=== PATIENT | male | born 1965 | race Caucasian/White ===

== ENCOUNTER 2017-07-03 00:04 | Emergency (ER) | payer OTHER ==
[2017-07-03 00:58] VITALS: BP 109/85; PULSE 88; TEMP 99.8; BMI 25.7
[2017-07-03] MEDS ORDERED: SODIUM CHLORIDE 1,000 ML IV STA (03:09)
--- NOTE | 2017-07-03 03:09 | PDOC ---
History of Present Illness - General Chief Complaint: Cold Symptoms Stated Complaint: FEVER Time Seen by Provider: 07/03/17 01:06 History Source: Patient Exam Limitations: No Limitations - History of Present Illness Initial Comments: 07/03/17 04:23 51-year-old male with a history of autism and hypertension presents to the emergency department complaining of subjective fever/chills but denies nausea/ vomiting, headache, dizziness, lightheadedness, facial pain, rhinorrhea, nasal congestion, earaches, sore throat, cough, neck pain/stiffness, back pains, chest pain, shortness of breath, abdominal pains, urinary symptoms. Patient denies any complaints. Patient lives in a usp, patient was sent to the emergency department for blood pressure of 117/72. Timing/Duration: reports: yesterday Past History - Past Medical History Allergies/Adverse Reactions: Allergies Allergy/AdvReac Type Severity Reaction Status Date / Time No Known Allergies Allergy Verified 07/03/17 00:56 Home Medications: Ambulatory Orders Amlodipine Besylate 5 mg PO DAILY 12/16/15 Cholecalciferol (Vitamin D3) [Vitamin D3] 2,000 unit PO DAILY 12/16/15 Clotrimazole [Lotrimin -] 1 applic TP BID 12/16/15 Cyanocobalamin [Vitamin B12 -] 1,000 mg PO DAILY 12/16/15 Losartan Potassium 100 mg PO DAILY 12/16/15 Metronidazole 0.75% Gel [Metrogel 0.75% Gel -] 1 applic TP BID 12/16/15 Multivitamins [Multivit ([facility] Formulary)] 1 tab PO DAILY 12/16/15 [place]-3 Fatty Acids [[place]-3] 1,000 mg PO BID 12/16/15 Polyethylene Glycol 3350 [Miralax 119 gm Btl -] 17 gm PO BID 12/16/15 Simvastatin [Zocor -] 20 mg PO HS 12/16/15 Clozapine [Clozaril] 50 mg PO DAILY 12/17/15 Clozapine [Clozaril] 100 mg PO HS 12/17/15 Levofloxacin [Levaquin] 750 mg PO DAILY #2 tablet 12/19/15 Diabetes: Yes (BORDERLINE) HTN: Yes Hypercholesterolemia: Yes Psychiatric Problems: Yes (SCHIZOAFFECTIVE DISORDER) - Suicide/Smoking/Psychosocial Hx Smoking History: Never smoked Have you smoked in the past 12 months: No Information on smoking cessation initiated: No Hx Alcohol Use: No Drug/Substance Use Hx: No Substance Use Type: None Hx Substance Use Treatment: No Review of Systems - Review of Systems Able to Perform ROS?: Yes Comments:: 07/03/17 04:23 CONSTITUTIONAL: +Subjective fever Absent: chills, diaphoresis, generalized weakness, malaise, loss of appetite HEENT: Absent: rhinorrhea, nasal congestion, throat pain, throat swelling, difficulty swallowing, mouth swelling, ear pain, eye pain, visual Changes CARDIOVASCULAR: Absent: chest pain, loss of consciousness, palpitations, irregular heart rate, peripheral edema RESPIRATORY: Absent: cough, shortness of breath, dyspnea with exertion, orthopnea, wheezing, stridor, hemoptysis GASTROINTESTINAL: Absent: abdominal pain, abdominal distension, nausea, vomiting, diarrhea, constipation, melena, hematochezia GENITOURINARY: Absent: dysuria, frequency, urgency, hesitancy, hematuria, flank pain, genital pain MUSCULOSKELETAL: Absent: myalgia, arthralgia, joint swelling SKIN: Absent: rash, itching, pallor HEMATOLOGIC/IMMUNOLOGIC: Absent: easy bleeding, easy bruising, lymphadenopathy, frequent infections ENDOCRINE: Absent: unexplained weight gain, unexplained weight loss, heat intolerance, cold intolerance NEUROLOGIC: Absent: headache, focal weakness or paresthesias, dizziness, unsteady gait, seizure, mental status changes, bladder or bowel incontinence PSYCHIATRIC: Absent: anxiety, depression, suicidal or homicidal ideation, hallucinations. 07/03/17 04:25 Is the patient limited German proficient: No *Physical Exam - Vital Signs Last Vital Signs Temp Pulse Resp BP Pulse Ox 99.8 F H 88 20 109/85 99 07/03/17 00:56 07/03/17 00:56 07/03/17 00:56 07/03/17 00:56 07/03/17 00:56 - Physical Exam Comments: 07/03/17 04:23 GENERAL: Well developed, well nourished. Awake and alert. No acute distress. HEENT: Normocephalic, atraumatic. PERRLA, EOMI. No conjunctival pallor. Sclera are non- icteric. Moist mucous membranes. Oropharynx is clear. NECK: Supple. Full ROM. No JVD. Carotid pulses 2+ and symmetric, without bruits. No thyromegaly. No lymphadenopathy. CARDIOVASCULAR: Regular rate and rhythm. No murmurs, rubs, or gallops. Distal pulses are 2+ and symmetric. PULMONARY: No evidence of respiratory distress. Lungs clear to auscultation bilaterally. No wheezing, rales or rhonchi. ABDOMINAL: Soft. Non-tender. Non-distended. No rebound or guarding. No organomegaly. Normoactive bowel sounds. MUSCULOSKELETAL Normal range of motion at all joints. No bony deformities or tenderness. No CVA tenderness. EXTREMITIES: No cyanosis. No clubbing. No edema. No calf tenderness. SKIN: Warm and dry. Normal capillary refill. No rashes. No jaundice. NEUROLOGICAL: Alert, awake, appropriate. Cranial nerves 2-12 intact. No deficits to light touch and temperature in face, upper extremities and lower extremities. No motor deficits in the in face, upper extremities and lower extremities. Normoreflexic in the upper and lower extremities. Normal speech. Toes are down- going bilaterally. Gait is normal without ataxia. PSYCHIATRIC: Cooperative. Good eye contact. Appropriate mood and affect. ED Treatment Course - LABORATORY CBC & Chemistry Diagram: 07/03/17 04:26 07/03/17 04:26 - RADIOLOGY Radiograph Interpretation: 07/03/17 04:25 CXR 2v NAD Medical Decision Making - Medical Decision Making 07/03/17 05:44 51-year-old male history of functioning autism presents to the emergency department complaining of general malaise and fever. Patient had 1 L of normal saline from EMS and was given 1 L of normal saline in the emergency department. Patient denies any abdominal discomfort. Patient denies any pain or discomfort. Patient states he just felt tired but after his 2 L of normal saline, patient states he feels great. Patient will be discharge with viral syndrome instructions. Patient's escort and the patient was informed to return back to the emergency department for any concerns. *DC/Admit/Observation/Transfer Diagnosis at time of Disposition: Viral syndrome - Discharge Dispostion Disposition: HOME Condition at time of disposition: Stable Admit: No - Referrals Referrals: Jayda Rankin [Primary Care Provider] - - Patient Instructions Printed Discharge Instructions: DI for Viral Syndrome Additional Instructions: Rest Increase fluids Follow up with your physician within 48 hours Return to the ER for severe/persistent/worsening symptoms - Post Discharge Activity
[2017-07-03 04:38] LABS: BASO % 0.2 % (0-2.0); EOS % 0.9 % (0-4.5); HEMATOCRIT 36.7 % (35.4-49); HEMOGLOBIN 12.4 GM/dL (11.7-16.9); LYMPH % 12.6 % (8-40); MCH 31.1 pg (25.7-33.7); MCHC 33.8 g/dl (32.0-35.9); MEAN PLT VOLUME 9.4 fl (7.5-11.1); NEUT % 73.3 % (42.8-82.8); PLATELET COUNT 187 K/MM3 (134-434); RBC 3.99 M/mm3 (4.00-5.60); RDW 13.4 % (11.9-15.9); WHITE BLOOD COUNT 13.6 K/mm3 (4.0-10.0)
[2017-07-03 05:02] LABS: ALBUMIN 2.9 g/dl (3.4-5.0); ANION GAP 7 (8-16); BLOOD UREA NITROGEN 19 mg/dL (7-18); CALCIUM 8.4 mg/dL (8.5-10.1); CHLORIDE 107 mmol/L (98-107); CO2 26 mmol/L (21-32); CREATININE 0.9 mg/dL (0.7-1.3); GLUCOSE,RANDOM 85 mg/dL (74-106); SGOT/AST 13 U/L (15-37); SGPT/ALT 16 U/L (12-78); SODIUM 140 mmol/L (136-145)
[2017-07-03 05:04] LABS: ALK PHOS 69 U/L (45-117); BILIRUBIN,TOTAL 0.5 mg/dL (0.2-1.0); TOT PROT 6.3 g/dl (6.4-8.2)
== END 2017-07-03 05:54 | disposition home or self-care (01) ==
LOC: JER 00:04
PROC: 3E0337Z Introduction of Electrolytic and Water Balance Substance into Peripheral Vein, Percutaneous Approach (ICD-10-PCS; principal; 2017-07-03)
DX: I10 Essential (primary) hypertension (principal); E78.00 Pure hypercholesterolemia, unspecified; F25.9 Schizoaffective disorder, unspecified; E11.9 Type 2 diabetes mellitus without complications
CPT/HCPCS: 36415; 71045-TC; 80053; 85025; 87070; 87430; 87804; 96360; 99282-25

== ENCOUNTER 2017-12-05 11:28 | Emergency (ER) | payer OTHER ==
[2017-12-05 11:43] VITALS: BMI 25.0
[2017-12-05] MEDS ORDERED: SODIUM CHLORIDE 1,000 ML IV STA (12:04)
[2017-12-05 12:27] LABS: BASO % 0.2 % (0-2.0); EOS % 3.6 % (0-4.5); HEMATOCRIT 40.7 % (35.4-49); LYMPH % 16.9 % (8-40); MCH 31.6 pg (25.7-33.7); MCHC 34.4 g/dl (32.0-35.9); MONO % 12.2 % (3.8-10.2); NEUT % 67.1 % (42.8-82.8); PLATELET COUNT 199 K/MM3 (134-434); RBC 4.43 M/mm3 (4.00-5.60); RDW 13.6 % (11.9-15.9); WHITE BLOOD COUNT 6.7 K/mm3 (4.0-10.0)
[2017-12-05 12:39] LABS: INR 1.02 (0.82-1.09); PROTHROMBIN TIME (PATIENT) 11.5 SEC (9.7-13.0)
[2017-12-05 12:49] LABS: ALBUMIN 3.7 g/dl (3.4-5.0); ALK PHOS 71 U/L (45-117); ANION GAP 5 (8-16); BILIRUBIN,TOTAL 0.3 mg/dL (0.2-1.0); BLOOD UREA NITROGEN 11 mg/dL (7-18); CHLORIDE 110 mmol/L (98-107); CO2 27 mmol/L (21-32); CREATININE 0.9 mg/dL (0.7-1.3); GLUCOSE,RANDOM 77 mg/dL (74-106); SGPT/ALT 25 U/L (12-78); SODIUM 142 mmol/L (136-145); TOT PROT 6.8 g/dl (6.4-8.2)
[2017-12-05 12:50] LABS: POTASSIUM 4.9 mmol/L (3.5-5.1); SGOT/AST 27 U/L (15-37)
--- NOTE | 2017-12-05 13:10 | PDOC ---
History of Present Illness - General Chief Complaint: Blood Pressure Problem Stated Complaint: HYPERTENSION Time Seen by Provider: 12/05/17 11:42 - History of Present Illness Initial Comments: 12/05/17 13:07 "Patient is a 52 year old male with a PMHx of HTN, hyperlipidemia, and schizoaffective disorder who was BIBA from his intermediate at [facility] for hypotension. Patients blood pressure was taken at intermediate and found to be 80/60. Per intermediate nurse, his normal blood pressure is 100 systolic. Pt was given his home dose of amlodipine and losartan this morning. Pt has no complaints. He states that he feels well. He denies any lightheadedness, dizziness, chest pain, shortness of breath, vomit , diarrhea, abdominal pain, fever, or chills. Upon arrival to ED, pt's BP was 103/60. Past History - Past Medical History Allergies/Adverse Reactions: Allergies Allergy/AdvReac Type Severity Reaction Status Date / Time No Known Allergies Allergy Verified 07/03/17 00:56 Home Medications: Ambulatory Orders Amlodipine Besylate 5 mg PO DAILY 12/16/15 Cholecalciferol (Vitamin D3) [Vitamin D3] 2,000 unit PO DAILY 12/16/15 Clotrimazole [Lotrimin -] 1 applic TP BID 12/16/15 Cyanocobalamin [Vitamin B12 -] 1,000 mg PO DAILY 12/16/15 Losartan Potassium 100 mg PO DAILY 12/16/15 Multivitamins [Multivit ([facility] Formulary)] 1 tab PO DAILY 12/16/15 [place]-3 Fatty Acids [[place]-3] 1,000 mg PO BID 12/16/15 Polyethylene Glycol 3350 [Miralax 119 gm Btl -] 17 gm PO BID 12/16/15 Simvastatin [Zocor -] 20 mg PO HS 12/16/15 metroNIDAZOLE 0.75% GEL [Metrogel 0.75% Gel -] 1 applic TP BID 12/16/15 Clozapine [Clozaril] 50 mg PO DAILY 12/17/15 Clozapine [Clozaril] 100 mg PO HS 12/17/15 Levofloxacin [Levaquin] 750 mg PO DAILY #2 tablet 12/19/15 COPD: No Diabetes: Yes (BORDERLINE) HTN: Yes Hypercholesterolemia: Yes Psychiatric Problems: Yes (SCHIZOAFFECTIVE DISORDER) - Immunization History Immunization Up to Date: Yes - Suicide/Smoking/Psychosocial Hx Smoking History: Never smoked Have you smoked in the past 12 months: No Information on smoking cessation initiated: No Hx Alcohol Use: No Drug/Substance Use Hx: No Substance Use Type: None Hx Substance Use Treatment: No Review of Systems - Review of Systems Comments:: 12/05/17 13:09 """GENERAL/CONSTITUTIONAL: No fever or chills. No weakness. HEAD, EYES, EARS, NOSE AND THROAT: No change in vision. No ear pain or discharge. No sore throat. CARDIOVASCULAR: No chest pain or shortness of breath. RESPIRATORY: No cough, wheezing, or hemoptysis. GASTROINTESTINAL: No nausea, vomiting, diarrhea or constipation. GENITOURINARY: No dysuria, frequency, or change in urination. MUSCULOSKELETAL: No joint or muscle swelling or pain. No neck or back pain. SKIN: No rash NEUROLOGIC: No headache, vertigo, loss of consciousness, or change in strength/ sensation. ENDOCRINE: No increased thirst. No abnormal weight change. HEMATOLOGIC/LYMPHATIC: No anemia, easy bleeding, or history of blood clots. ALLERGIC/IMMUNOLOGIC: No hives or skin allergy. """ *Physical Exam - Vital Signs Last Vital Signs Temp Pulse Resp BP Pulse Ox 98.2 F 77 20 103/60 96 12/05/17 11:40 12/05/17 11:40 12/05/17 11:40 12/05/17 11:40 12/05/17 11:40 - Physical Exam Comments: 12/05/17 13:09 """GENERAL: Awake, alert, and fully oriented, in no acute distress. HEAD: No signs of trauma EYES: PERRLA, EOMI, sclera anicteric, conjunctiva clear ENT: Auricles normal inspection, hearing grossly normal, nares patent, oropharynx clear without exudates. Moist mucosa NECK: Nontender, no stepoffs, Normal ROM, supple, no lymphadenopathy, JVD, or masses LUNGS: Breath sounds equal, clear to auscultation bilaterally. No wheezes, and no crackles HEART: Regular rate and rhythm, normal S1 and S2, no murmurs, rubs or gallops ABDOMEN: Soft, nontender, normoactive bowel sounds. No guarding, no rebound. No masses EXTREMITIES: Normal range of motion, no edema. No clubbing or cyanosis. No cords, erythema, or tenderness NEUROLOGICAL: Cranial nerves II through XII intact. 5/5 strength and sensation in all extremities, Normal speech, normal gait, normal cerebellar function SKIN: Warm, Dry, normal turgor, no rashes or lesions noted. """ Heart Score/ECG Review - ECG Impressions Comment:: 12/05/17 13:09 NSR, no RENEE/STDs, no TWIs, axis wnl, intervals wnl, rate 73 ED Treatment Course - LABORATORY CBC & Chemistry Diagram: 12/05/17 12:00 12/05/17 12:00 - ADDITIONAL ORDERS Additional order review: Laboratory Results 12/05/17 12:00 Sodium 142 Potassium 4.9 D Chloride 110 H Carbon Dioxide 27 Anion Gap 5 L BUN 11 Creatinine 0.9 Creat Clearance w eGFR > 60 Random Glucose 77 Calcium 9.0 Total Bilirubin 0.3 AST 27 D ALT 25 D Alkaline Phosphatase 71 Total Protein 6.8 Albumin 3.7 12/05/17 12:00 RBC 4.43 MCV 92.0 MCHC 34.4 RDW 13.6 MPV 10.0 Neutrophils % 67.1 Lymphocytes % 16.9 D Monocytes % 12.2 H Eosinophils % 3.6 D Basophils % 0.2 - Medications Given in the ED: ED Medications Discontinued Medications Generic Name Dose Route Start Last Admin Trade Name Bubbaq PRN Reason Stop Dose Admin Sodium Chloride 1,000 mls @ 1,000 mls/hr 12/05/17 12:04 12/05/17 12:05 Normal Saline - IV 12/05/17 13:03 1,000 mls/hr ASDIR STA Administration Medical Decision Making - Medical Decision Making 12/05/17 13:09 52 M with hypotension at intermediate, now resolved. Pt with no symptoms whatsoever. I suspect false BP reading vs transient hypotension 2/2 pt's antihypertensives. Pt currently HD stable with no complaints. - Labs 12/05/17 13:26 Labs wnl Pt reassessed - continues to have no complaints. Pt is well appearing, with normal vitals. Clinically stable for DC at this time. I discussed the physical exam findings, ancillary test results and final diagnoses with the patient. I answered all of the patient's questions. The patient was satisfied with the care received and felt comfortable with the discharge plan and treatment plan. The patient agrees to follow up with the primary care physician within 24-72 hours. *DC/Admit/Observation/Transfer Diagnosis at time of Disposition: Blood pressure abnormally low - Discharge Dispostion Disposition: HOME - Referrals Referrals: ON STAFF,NOT [Primary Care Provider] - - Patient Instructions Printed Discharge Instructions: DI for Hypotension Additional Instructions: Continue taking your medications as prescribed, and check your blood pressure regular. Follow up with your primary doctor within 1 week. You may need to have your medications adjusted if your blood pressure continues to run low. If you experience lightheadedness, dizziness, chest pain, shortness of breath, or any other concerning symptoms, return to the ER immediately. - Post Discharge Activity - Attestations Physician Attestion: 12/05/17 13:29 I, Dr. James Goodson MD, attest that this document has been prepared under my direction and personally reviewed by me in its entirety. I further attest, that it accurately reflects all work, treatment, procedures and medical decision -making performed by me.
[2017-12-05 13:49] VITALS: BP 135/80; PULSE 87; TEMP 98.3
--- NOTE | 2017-12-06 17:31 | EKG ---
Test Reason : Blood Pressure : / mmHG Vent. Rate : 073 BPM Atrial Rate : 073 BPM P-R Int : 182 ms QRS Dur : 092 ms QT Int : 390 ms P-R-T Axes : 051 -06 041 degrees QTc Int : 429 ms NORMAL SINUS RHYTHM NORMAL ECG WHEN COMPARED WITH ECG OF 16-DEC-2015 16:49, NO SIGNIFICANT CHANGE WAS FOUND Confirmed by CATY AZAR MD ([id number]) on 12/06/2017 5:31:05 PM Referred By: Confirmed By:CATY AZAR MD
== END 2017-12-05 13:44 | disposition home or self-care (01) ==
LOC: JER 11:28
PROC: 3E0337Z Introduction of Electrolytic and Water Balance Substance into Peripheral Vein, Percutaneous Approach (ICD-10-PCS; principal; 2017-12-05)
DX: I95.9 Hypotension, unspecified (principal); E78.5 Hyperlipidemia, unspecified; E78.00 Pure hypercholesterolemia, unspecified; E11.9 Type 2 diabetes mellitus without complications; I10 Essential (primary) hypertension; F25.9 Schizoaffective disorder, unspecified
CPT/HCPCS: 36415; 80053; 82550; 84484; 85025; 85610; 93005; 93010; 96360; 99285-25; J7030

== ENCOUNTER 2017-12-27 14:34 | Inpatient (IN) | payer OTHER ==
--- NOTE | 2017-12-27 14:40 | PDOC ---
History of Present Illness - General Chief Complaint: Blood Pressure Problem Stated Complaint: LOW BLOOD PRESSURE Time Seen by Provider: 12/27/17 14:39 History Source: Patient Exam Limitations: No Limitations - History of Present Illness Initial Comments: 12/27/17 15:13 Mr. Louis is a 52 yo M who has a past medical history of HTN, schizoaffective disorder, and borderline DM presents today with lightheadedness for 2 hrs with onset at 1pm. His last cardiology appointment was December [address] Bermudez which resulted in a decrease of his cozar to 50 mg from 100 mg. He currently lives in a residential and was on a day trip when the assistants noticed he was "shaky" and per the patient, began having lightheadedness while laying down. His BP measured was 108/58 with a pulse of 100. He denies loss of consciousness, head trauma, weakness, palpitations, and SOB. He endorses having a non productive cough over the last 3 days. Pmhx: Schizoaffective disorder, HTN, borderline DM, Shx: Hernia repair . Medications: Norvasc 5 mg, cozar 50 mg, clozapine, and aspirin 81 mg. Allergies: None Social history: Denies smoking, alcohol, and substance abuse PCP: Jayda Rankin [phone] 12/27/17 15:18 Past History - Past Medical History Allergies/Adverse Reactions: Allergies Allergy/AdvReac Type Severity Reaction Status Date / Time No Known Allergies Allergy Verified 07/03/17 00:56 Home Medications: Ambulatory Orders Amlodipine Besylate 5 mg PO DAILY 12/16/15 Cholecalciferol (Vitamin D3) [Vitamin D3] 2,000 unit PO DAILY 12/16/15 Cyanocobalamin [Vitamin B12 -] 1,000 mg PO DAILY 12/16/15 Losartan Potassium 50 mg PO DAILY 12/16/15 Multivitamins [Multivit ([facility] Formulary)] 1 tab PO DAILY 12/16/15 Polyethylene Glycol 3350 [Miralax 119 gm Btl -] 17 gm PO BID PRN 12/16/15 Clozapine [Clozaril] 50 mg PO DAILY 12/17/15 Clozapine [Clozaril] 100 mg PO HS 12/17/15 COPD: No Diabetes: Yes (BORDERLINE) HTN: Yes Hypercholesterolemia: Yes Psychiatric Problems: Yes (SCHIZOAFFECTIVE DISORDER) - Immunization History Immunization Up to Date: Yes - Suicide/Smoking/Psychosocial Hx Smoking History: Never smoked Have you smoked in the past 12 months: No Hx Alcohol Use: No Drug/Substance Use Hx: No Substance Use Type: None Hx Substance Use Treatment: No Review of Systems - Review of Systems Able to Perform ROS?: Yes Constitutional: No: Diaphoresis, Fever, Night Sweats HEENTM: No: Blurred Vision, Recent change in vision, Ear Pain, Nose Pain, Throat Pain Respiratory: No: Cough, Shortness of Breath Cardiac (ROS): No: Chest Pain, Palpitations ABD/GI: Yes: Poor Fluid Intake (per patient it is adequate. Per health aide it is underwhelming). No: Constipated, Diarrhea, Nausea, Rectal Bleeding, Vomiting , Tarry Stools : No: Dysuria, Hematuria Musculoskeletal: No: Back Pain Integumentary: No: Rash Neurological: No: Headache Endocrine: No: Unexplained Weight Gain *Physical Exam - Physical Exam General Appearance: Yes: Nourished, Appropriately Dressed HEENT: positive: Normal Voice Neck: negative: Lymphadenopathy (R), Lymphadenopathy (L) Respiratory/Chest: positive: Other (Lungs clear left side. Mild tightness of airflow in the right lung at mid to base.) Cardiovascular: positive: Regular Rhythm, Regular Rate, S1, S2, Systolic Murmur (grade 1) Gastrointestinal/Abdominal: positive: Normal Bowel Sounds. negative: Tender Lymphatic: negative: Adenopathy Musculoskeletal: positive: Normal Inspection Extremity: positive: Normal Inspection Integumentary: positive: Normal Color, Dry, Warm Neurologic: positive: Alert Heart Score/ECG Review - ECG Intrepretation Rhythm: Regular Rhythm - [place]: Normal - P and RI Prominent R with upright T in V1 (true posterior AL): No - ST and T Non Specific ST-T Wave changes: No - ECG Impressions Normal ECG: Yes ED Treatment Course - LABORATORY CBC & Chemistry Diagram: 12/27/17 16:42 12/27/17 16:42 Medical Decision Making - Medical Decision Making 12/27/17 16:33 Mr. Louis is a 52 yo M with a hx of schizoaffective disorder, HTN, and a recent ED visit for hypotension presents to the ED with hypotension with earlier concurrent lightheadedness. Initial vitals: Initial Vital Signs Temp Pulse Resp BP Pulse Ox 98.4 F 99 H 16 104/69 95 12/27/17 14:36 12/27/17 14:36 12/27/17 14:36 12/27/17 14:36 12/27/17 14:36 Workup: CBC, CMP, troponin, UA, EKG, and chest xray. 1000 mL bolus of NS given. 12/27/17 17:00 *DC/Admit/Observation/Transfer Diagnosis at time of Disposition: Pneumonia Qualifiers: Pneumonia type: due to unspecified organism Laterality: right Lung location: upper lobe of lung Qualified Code(s): J18.1 - Lobar pneumonia, unspecified organism - Discharge Dispostion Decision to Admit order: Yes - Referrals Referrals: Jayda Rankin [Primary Care Provider] - - Patient Instructions - Post Discharge Activity
[2017-12-27 15:06] VITALS: BMI 24.7
[2017-12-27] MEDS ORDERED: SODIUM CHLORIDE 1,000 ML IV STA (15:44)
[2017-12-27 16:40] LABS: URINE APPEARANCE Clear; URINE BILIRUBIN Negative (NEGATIVE); URINE COLOR Yellow; URINE GLUCOSE (UA) Negative (NEGATIVE); URINE KETONE Negative (NEGATIVE); URINE LEUK ESTERASE Negative (NEGATIVE); URINE NITRITE Negative (NEGATIVE); URINE PROTEIN 2+ (NEGATIVE); URINE UROBILINOGEN 0.2 (0.2-1.0)
[2017-12-27 17:02] LABS: HEMATOCRIT 43.6 % (35.4-49); HEMOGLOBIN 14.9 GM/dl (11.7-16.9); MCH 31.8 pg (25.7-33.7); MCHC 34.2 g/dl (32.0-35.9); MEAN PLT VOLUME 10.1 fl (7.5-11.1); PLATELET COUNT 193 K/MM3 (134-434); RBC 4.69 M/mm3 (4.00-5.60); WHITE BLOOD COUNT 29.4 K/mm3 (4.0-10.8)
[2017-12-27 17:31] LABS: ALBUMIN 3.6 g/dl (3.5-5.0); ALK PHOS 58 U/L (32-92); ANION GAP 9 (8-16); BILIRUBIN,TOTAL 0.8 mg/dl (0.2-1.0); BLOOD UREA NITROGEN 15 mg/dl (7-18); CALCIUM 9.5 mg/dl (8.4-10.2); CHLORIDE 102 mmol/L (98-107); CO2 22 mmol/L (22-28); CREATININE 0.8 mg/dl (0.6-1.3); GLUCOSE,RANDOM 125 mg/dl (74-106); POTASSIUM 3.9 mmol/L (3.5-5.1); SGOT/AST 24 U/L (10-42); SGPT/ALT 14 U/L (10-40); SODIUM 133 mmol/L (136-145); TOT PROT 6.5 g/dl (6.4-8.3)
[2017-12-27] MEDS ORDERED: VANCOMYCIN 1 GRAM (PRE-DOCKED) 1,000 MG/250 ML BAG IVPB ONE (17:33)
--- NOTE | 2017-12-27 17:34 | PDOC ---
Attending Attestation - Resident Resident Name: ZekeGarth - ED Attending Attestation I have performed the following: I have examined & evaluated the patient, The case was reviewed & discussed with the resident, I agree w/resident's findings & plan, Exceptions are as noted - HPI HPI: 12/27/17 17:28 52 yo male with h/o htn hld schizoaffective here from long-term for low blood pressure. normal blood pressure runs around 100 sbp. was seen for same in november. today c/o feeling lightheaded. has had dry nonproductive cough. no cp no f/c no urinary complaints. decreased po intake. no f or chills. was recently decreaesed bp meds from amlodipine 5 and loSARTAN 100, DECREASED TO 50 mg NO N/ V NO DIARRHEA. take clozaril also 12/27/17 17:35 - Physicial Exam PE: 12/27/17 17:30 awake alert lungs with faint crackles right side. no wheezing. normal effort. heart rrr no mrg. abd soft nt nd. skin warm and dryl. alert oriented x 3. affect flat,but calm cooperative. - Medical Decision Making 12/27/17 17:32 52 yo male h/;o schizoaffective htn hld from long-term with lightheaded. borderline low bp. differential decreased po intake, pna or other infection such as uti, anemia or other electyrolyte abnormality labs noted for wbc 29, cxr with right upper lobe pneumonia, will treat for health care associated because in long-term. will admit for med/ surg.
[2017-12-27] MEDS ORDERED: PIPERACILLIN/TAZOB 3.375 GM 3.375 GM in DEXTROSE 5%-WATER - 50 ML IVPB ONE (17:35)
[2017-12-27 17:59] LABS: EPI CELLS RARE /HPF; URINE BACTERIA RARE /hpf (NEGATIVE); URINE RBC 0-3 /hpf (0-3); URINE WBC 0-3 (0-2)
[2017-12-27] MEDS ORDERED: SODIUM CHLORIDE 0.9% 1000 ML INFUS.BAG IV ONE (19:18)
[2017-12-27 19:39] LABS: OVALOCYTE 1+; PLATELET ESTIMATE ADEQUATE
[2017-12-27] MEDS ORDERED: VANCOMYCIN 1,000 MG VIAL (RESTRICTED TO ID ONLY) ONE (21:58)
[2017-12-27] MEDS ORDERED: PIPERACILLIN/TAZOBACTAM 3.375 GM VIAL IVPB ONE (21:59)
[2017-12-27] MEDS ORDERED: cloZAPine 100 MG TABLET PO ONE (23:45)
[2017-12-27] MEDS ORDERED: ACETAMINOPHEN 325 MG TABLET (FP) PO PRN (23:50)
--- NOTE | 2017-12-27 23:50 | HP ---
Admitting History and Physical - Primary Care Physician PCP: Rolf Lara - Admission History of Present Illness: Mr. Louis is a 52 yo M who has a past medical history of HTN, schizoaffective disorder, and borderline DM presents today with lightheadedness for 2 hrs with onset at 1pm. His last cardiology appointment was December [address] Bermudez which resulted in a decrease of his cozar to 50 mg from 100 mg. He currently lives in a detention and was on a day trip when the assistants noticed he was "shaky" and per the patient, began having lightheadedness while laying down. His BP measured was 108/58 with a pulse of 100. He denies loss of consciousness, head trauma, weakness, palpitations, and SOB. He endorses having a non productive cough over the last 3 days. Pmhx: Schizoaffective disorder, HTN, borderline DM, - Smoking History Smoking history: Never smoked Have you smoked in the past 12 months: No - Alcohol/Substance Use Hx Alcohol Use: No Home Medications - Allergies Allergies/Adverse Reactions: Allergies Allergy/AdvReac Type Severity Reaction Status Date / Time No Known Allergies Allergy Verified 07/03/17 00:56 - Home Medications Home Medications: Ambulatory Orders Amlodipine Besylate 5 mg PO DAILY 12/16/15 Cholecalciferol (Vitamin D3) [Vitamin D3] 2,000 unit PO DAILY 12/16/15 Cyanocobalamin [Vitamin B12 -] 1,000 mg PO DAILY 12/16/15 Losartan Potassium 50 mg PO DAILY 12/16/15 Multivitamins [Multivit ([facility] Formul[facility])] 1 tab PO DAILY 12/16/15 Polyethylene Glycol 3350 [Miralax 119 gm Btl -] 17 gm PO BID PRN 12/16/15 Clozapine [Clozaril] 50 mg PO DAILY 12/17/15 Clozapine [Clozaril] 100 mg PO HS 12/17/15 Physical Examination Vital Signs: Vital Signs Temperature 98.4 F 12/27/17 14:36 Pulse Rate 99 H 12/27/17 14:36 Respiratory Rate 16 12/27/17 14:36 Blood Pressure 104/69 12/27/17 14:36 O2 Sat by Pulse Oximetry (%) 95 12/27/17 14:36 Constitutional: Yes: No Distress HENT: Yes: Atraumatic Neck: Yes: Supple Cardiovascular: Yes: Regular Rate and Rhythm Respiratory: Yes: Rhonchi Gastrointestinal: Yes: Normal Bowel Sounds Extremities: Yes: WNL Neurological: Yes: Alert, Oriented Labs: CBC, BMP 12/27/17 16:42 12/27/17 16:42 Problem List - Problems (1) Pneumonia Assessment/Plan: iv abx fu labs id on board stable Code(s): J18.9 - PNEUMONIA, UNSPECIFIED ORGANISM Qualifiers: Pneumonia type: due to unspecified organism Laterality: right Lung location: upper lobe of lung Qualified Code(s): J18.1 - Lobar pneumonia, unspecified organism (2) Blood pressure abnormally low Assessment/Plan: monitor Code(s): R03.1 - NONSPECIFIC LOW BLOOD-PRESSURE READING Assessment/Plan Laboratory Tests 12/27/17 12/27/17 12/27/17 15:40 16:42 16:42 WBC 29.4 H RBC 4.69 Hgb 14.9 Hct 43.6 MCV 93.0 MCH 31.8 MCHC 34.2 RDW 13.0 Plt Count 193 MPV 10.1 Absolute Neuts (auto) 25.8 Neutrophils % No Result Required. Neutrophils % (Manual) 81.0 Band Neutrophils % 4.0 Lymphocytes % No Result Required. Lymphocytes % (Manual) 2.0 L Monocytes % (Manual) 7 Platelet Estimate Adequate Ovalocytes 1+ Sodium 133 L Potassium 3.9 Chloride 102 Carbon Dioxide 22 Anion Gap 9 BUN 15 Creatinine 0.8 Creat Clearance w eGFR > 60 Random Glucose 125 H Lactic Acid Calcium 9.5 Total Bilirubin 0.8 AST 24 ALT 14 Alkaline Phosphatase 58 Troponin I Total Protein 6.5 Albumin 3.6 Urine Color Yellow Urine Appearance Clear Urine pH 7.0 Ur Specific Anita 1.020 Urine Protein 2+ H Urine Glucose (UA) Negative Urine Ketones Negative Urine Blood Negative Urine Nitrite Negative Urine Bilirubin Negative Urine Urobilinogen 0.2 Ur Leukocyte Esterase Negative Urine RBC 0-3 Urine WBC 0-3 Ur Epithelial Cells Rare Urine Bacteria Rare 12/27/17 12/27/17 16:42 20:15 WBC RBC Hgb Hct MCV MCH MCHC RDW Plt Count MPV Absolute Neuts (auto) Neutrophils % Neutrophils % (Manual) Band Neutrophils % Lymphocytes % Lymphocytes % (Manual) Monocytes % (Manual) Platelet Estimate Ovalocytes Sodium Potassium Chloride Carbon Dioxide Anion Gap BUN Creatinine Creat Clearance w eGFR Random Glucose Lactic Acid 1.0 Calcium Total Bilirubin AST ALT Alkaline Phosphatase Troponin I < 0.03 Total Protein Albumin Urine Color Urine Appearance Urine pH Ur Specific Anita Urine Protein Urine Glucose (UA) Urine Ketones Urine Blood Urine Nitrite Urine Bilirubin Urine Urobilinogen Ur Leukocyte Esterase Urine RBC Urine WBC Ur Epithelial Cells Urine Bacteria Active Medications Generic Name Dose Route Start Last Admin Trade Name Royce PRN Reason Stop Dose Admin Acetaminophen 650 mg 12/27/17 23:50 Tylenol - PO Q6H PRN FEVER Amlodipine Besylate 5 mg 12/28/17 10:00 12/28/17 09:48 Norvasc - PO 5 mg DAILY [facility] Administration Cholecalciferol 1,000 unit 12/28/17 10:00 12/28/17 09:48 Vitamin D3 - PO 1,000 unit DAILY [facility] Administration Clozapine 100 mg 12/28/17 22:00 Clozaril - PO HS [facility] Clozapine 50 mg 12/28/17 10:00 12/28/17 10:38 Clozaril - PO 50 mg DAILY [facility] Administration Cyanocobalamin 1,000 mcg 12/28/17 10:00 12/28/17 09:48 Vitamin B12 - PO 1,000 mcg DAILY [facility] Administration Heparin Sodium (Porcine) 5,000 unit 12/28/17 10:00 12/28/17 09:48 Heparin - SQ 5,000 unit BID [facility] Administration Piperacillin Sod/Tazobactam Sod 3.375 gm in 50 mls @ 100 mls/hr 12/28/17 10: 00 12/28/17 10:37 Zosyn 3.375gm Ivpb (Pre-Docked) IVPB 100 mls/hr Q8H-IV [facility] Administration Protocol Losartan Potassium 50 mg 12/28/17 10:00 12/28/17 09:48 Cozaar - PO 50 mg DAILY [facility] Administration Multivitamins/Minerals/Vitamin C 1 tab 12/28/17 10:00 12/28/17 09:48 Tab-A-Vit - PO 1 tab DAILY [facility] Administration Polyethylene Glycol 17 gm 12/28/17 10:00 12/28/17 09:49 Miralax (For Daily Use) - PO 17 gm BID [facility] Administration
[2017-12-28 08:52] LABS: ALBUMIN 3.1 g/dl (3.5-5.0); ALK PHOS 56 U/L (32-92); ANION GAP 8 (8-16); BILIRUBIN,TOTAL 1.2 mg/dl (0.2-1.0); BLOOD UREA NITROGEN 14 mg/dl (7-18); CALCIUM 9.1 mg/dl (8.4-10.2); CHLORIDE 106 mmol/L (98-107); CO2 21 mmol/L (22-28); CREATININE 0.8 mg/dl (0.6-1.3); GLUCOSE,RANDOM 104 mg/dl (74-106); POTASSIUM 3.8 mmol/L (3.5-5.1); SGOT/AST 20 U/L (10-42); SGPT/ALT 13 U/L (10-40); SODIUM 135 mmol/L (136-145); TOT PROT 6.2 g/dl (6.4-8.3)
[2017-12-28 09:20] LABS: RBC 4.01 M/mm3 (4.00-5.60)
[2017-12-28 09:36] LABS: HEMOGLOBIN 12.8 GM/dl (11.7-16.9); MCH 31.9 pg (25.7-33.7); MCHC 34.6 g/dl (32.0-35.9); MEAN CELL VOLUME 92.2 fl (80-96); MEAN PLT VOLUME 10.2 fl (7.5-11.1); PLATELET COUNT 174 K/MM3 (134-434); WHITE BLOOD COUNT 26.5 K/mm3 (4.0-10.8)
[2017-12-28] MEDS: CYANOCOBALAMIN 1,000 MCG TABLET (FP) PO SCH (09:48)
[2017-12-28] MEDS: HEPARIN NA (PORCINE) 5,000 UNITS/ML 1ML VIAL SQ SCH ×2 (09:48→21:05)
[2017-12-28] MEDS: CHOLECALCIFEROL (VITAMIN D3) 1,000 UNIT TABLET (FP) PO SCH (09:48)
[2017-12-28] MEDS: LOSARTAN POTASSIUM 50 MG TABLET (FP) PO SCH (09:48)
[2017-12-28] MEDS: MULTIVITAMINS (DAILY MVI) TABLET (FP) PO SCH (09:48)
[2017-12-28] MEDS: amLODIPine BESYLATE 5 MG TABLET (FP) PO SCH (09:48)
[2017-12-28] MEDS: POLYETHYLENE GLYCOL 3350 119 GM BTL PO SCH ×2 (09:49→21:05)
--- NOTE | 2017-12-28 09:54 | CON.ID ---
Consult Consult Specialty:: infectious diseases Reason for Consultation:: pneumonia - History of Present Illness Chief Complaint: dizziness History of Present Illness: 52 yo M who has a past medical history of HTN, schizoaffective disorder, and borderline DM presents admitted because of h lightheadedness patient currently lives in a longterm . patient had gone on a day trip and was found to be shaky and then became light headed and dizzy He denies loss of consciousness, head trauma, weakness, palpitations, and SOB. He endorses having a non productive cough over the last 3 days. currently patient looks stable and is comfortable - History Source History Provided By: Patient, Medical Record Limitations to Obtaining History: Clinical Condition - Alcohol/Substance Use Hx Alcohol Use: No - Smoking History Smoking history: Never smoked Have you smoked in the past 12 months: No Home Medications - Allergies Allergies/Adverse Reactions: Allergies Allergy/AdvReac Type Severity Reaction Status Date / Time No Known Allergies Allergy Verified 07/03/17 00:56 - Home Medications Home Medications: Ambulatory Orders Amlodipine Besylate 5 mg PO DAILY 12/16/15 Cholecalciferol (Vitamin D3) [Vitamin D3] 2,000 unit PO DAILY 12/16/15 Cyanocobalamin [Vitamin B12 -] 1,000 mg PO DAILY 12/16/15 Losartan Potassium 50 mg PO DAILY 12/16/15 Multivitamins [Multivit ([facility] Form[facility])] 1 tab PO DAILY 12/16/15 Polyethylene Glycol 3350 [Miralax 119 gm Btl -] 17 gm PO BID PRN 12/16/15 Clozapine [Clozaril] 50 mg PO DAILY 12/17/15 Clozapine [Clozaril] 100 mg PO HS 12/17/15 Review of Systems - Review of Systems Constitutional: reports: No Symptoms Eyes: reports: No Symptoms HENT: reports: No Symptoms Neck: reports: No Symptoms Cardiovascular: reports: Palpitations Respiratory: reports: Cough Gastrointestinal: reports: No Symptoms Genitourinary: reports: No Symptoms Musculoskeletal: reports: No Symptoms Integumentary: reports: No Symptoms Neurological: reports: Dizziness, Headache Endocrine: reports: No Symptoms Hematology/Lymphatic: reports: No Symptoms Psychiatric: reports: No Symptoms Physical Exam Vital Signs: Vital Signs Temperature 98.4 F 12/28/17 06:01 Pulse Rate 101 H 12/28/17 06:01 Respiratory Rate 18 07/17/18 08:55 Blood Pressure 104/54 07/17/18 06:01 O2 Sat by Pulse Oximetry (%) 94 L 12/28/17 08:55 Constitutional: Yes: Well Nourished, No Distress, Calm Eyes: Yes: Conjunctiva Clear HENT: Yes: Atraumatic, Normocephalic Neck: Yes: Supple, Trachea Midline Cardiovascular: Yes: Regular Rate and Rhythm, Tachycardia Respiratory: Yes: Regular, Poor Air Entry (at the bases) Gastrointestinal: Yes: Normal Bowel Sounds, Soft Musculoskeletal: Yes: WNL Extremities: Yes: WNL Neurological: Yes: Alert Psychiatric: Yes: Alert Labs: CBC, BMP 12/28/17 07:20 12/28/17 07:20 Imaging - Results Chest X-ray: Report Reviewed, Image Reviewed Assessment/Plan - Problems (1) Pneumonia Code(s): J18.9 - PNEUMONIA, UNSPECIFIED ORGANISM Qualifiers: Pneumonia type: due to unspecified organism Laterality: right Lung location: upper lobe of lung Qualified Code(s): J18.1 - Lobar pneumonia, unspecified organism (2) Blood pressure abnormally low Code(s): R03.1 - NONSPECIFIC LOW BLOOD-[place] 3 dizziness 4 tachycardia plan will start patient on abx will monitor how he does once stable will deescalate incentive winter rest as per the team
[2017-12-28] MEDS: PIPERACILLIN/TAZOB 3.375 GM 3.375 GM/50 ML BAG IVPB SCH ×2 (10:37→18:00)
[2017-12-28] MEDS: cloZAPine 25 MG TABLET PO SCH (10:38)
--- NOTE | 2017-12-28 11:27 | EKG ---
Test Reason : Blood Pressure : / mmHG Vent. Rate : 097 BPM Atrial Rate : 097 BPM P-R Int : 180 ms QRS Dur : 092 ms QT Int : 326 ms P-R-T Axes : 052 -01 044 degrees QTc Int : 414 ms NORMAL SINUS RHYTHM NORMAL ECG Confirmed by MD BEAU, DANIEL ([id number]) on 12/28/2017 11:27:03 AM Referred By: ARIANA Confirmed By:DANIEL YANEZ MD
--- NOTE | 2017-12-28 11:45 | PN ---
Progress Note, Physician - Current Medication List Current Medications: Active Medications Acetaminophen (Tylenol -) 650 mg PO Q6H PRN PRN Reason: FEVER Amlodipine Besylate (Norvasc -) 5 mg PO DAILY [facility] Last Admin: 12/28/17 09:48 Dose: 5 mg Cholecalciferol (Vitamin D3 -) 1,000 unit PO DAILY [facility] Last Admin: 12/28/17 09:48 Dose: 1,000 unit Clozapine (Clozaril -) 100 mg PO HS [facility] Clozapine (Clozaril -) 50 mg PO DAILY [facility] Last Admin: 12/28/17 10:38 Dose: 50 mg Cyanocobalamin (Vitamin B12 -) 1,000 mcg PO DAILY [facility] Last Admin: 12/28/17 09:48 Dose: 1,000 mcg Heparin Sodium (Porcine) (Heparin -) 5,000 unit SQ BID [facility] Last Admin: 12/28/17 09:48 Dose: 5,000 unit Piperacillin Sod/Tazobactam Sod (Zosyn 3.375gm Ivpb (Pre-Docked)) 3.375 gm in 50 mls @ 100 mls/hr IVPB Q8H-IV [facility]; Protocol Last Admin: 12/28/17 10:37 Dose: 100 mls/hr Losartan Potassium (Cozaar -) 50 mg PO DAILY [facility] Last Admin: 12/28/17 09:48 Dose: 50 mg Multivitamins/Minerals/Vitamin C (Tab-A-Vit -) 1 tab PO DAILY [facility] Last Admin: 12/28/17 09:48 Dose: 1 tab Polyethylene Glycol (Miralax (For Daily Use) -) 17 gm PO BID [facility] Last Admin: 12/28/17 09:49 Dose: 17 gm - Objective Vital Signs: Vital Signs Temperature 98.4 F 12/28/17 06:01 Pulse Rate 101 H 12/28/17 06:01 Respiratory Rate 18 12/28/17 08:55 Blood Pressure 104/54 12/28/17 06:01 O2 Sat by Pulse Oximetry (%) 94 L 12/28/17 08:55 Constitutional: Yes: No Distress HENT: Yes: Atraumatic Neck: Yes: Supple Cardiovascular: Yes: Regular Rate and Rhythm Respiratory: Yes: Rhonchi Gastrointestinal: Yes: Normal Bowel Sounds Extremities: Yes: WNL Neurological: Yes: Alert, Oriented Labs: CBC, BMP 12/28/17 07:20 12/28/17 07:20 Problem List - Problems (1) Pneumonia Assessment/Plan: iv abx fu labs id on board stable Code(s): J18.9 - PNEUMONIA, UNSPECIFIED ORGANISM Qualifiers: Pneumonia type: due to unspecified organism Laterality: right Lung location: upper lobe of lung Qualified Code(s): J18.1 - Lobar pneumonia, unspecified organism (2) Blood pressure abnormally low Code(s): R03.1 - NONSPECIFIC LOW BLOOD-PRESSURE READING
[2017-12-28] MEDS ORDERED: PT OWN MED DRAWER 7, Y5N ONE (21:01)
[2017-12-28] MEDS: cloZAPine 100 MG TABLET PO SCH (21:05)
[2017-12-29] MEDS: PIPERACILLIN/TAZOB 3.375 GM 3.375 GM/50 ML BAG IVPB SCH ×2 (01:14→09:32)
[2017-12-29] MEDS: CHOLECALCIFEROL (VITAMIN D3) 1,000 UNIT TABLET (FP) PO SCH (09:33)
[2017-12-29] MEDS: MULTIVITAMINS (DAILY MVI) TABLET (FP) PO SCH (09:33)
[2017-12-29] MEDS: CYANOCOBALAMIN 1,000 MCG TABLET (FP) PO SCH (09:33)
[2017-12-29] MEDS: HEPARIN NA (PORCINE) 5,000 UNITS/ML 1ML VIAL SQ SCH ×2 (09:33→21:44)
[2017-12-29] MEDS: POLYETHYLENE GLYCOL 3350 119 GM BTL PO SCH ×2 (09:33→21:44)
[2017-12-29] MEDS: amLODIPine BESYLATE 5 MG TABLET (FP) PO SCH (09:33)
[2017-12-29] MEDS: LOSARTAN POTASSIUM 50 MG TABLET (FP) PO SCH (09:33)
[2017-12-29] MEDS ORDERED: PT OWN MED DRAWER 7, Y5N ONE ×2 (09:35→21:43)
[2017-12-29] MEDS: cloZAPine 25 MG TABLET PO SCH (09:36)
--- NOTE | 2017-12-29 14:27 | PN ---
Progress Note, Physician History of Present Illness: doing much better sitting in chair much more energetic no complaints - Current Medication List Current Medications: Active Medications Acetaminophen (Tylenol -) 650 mg PO Q6H PRN PRN Reason: FEVER Amlodipine Besylate (Norvasc -) 5 mg PO DAILY [facility] Last Admin: 12/29/17 09:33 Dose: 5 mg Cholecalciferol (Vitamin D3 -) 1,000 unit PO DAILY [facility] Last Admin: 12/29/17 09:33 Dose: 1,000 unit Clozapine (Clozaril -) 100 mg PO HS [facility] Last Admin: 12/28/17 21:05 Dose: 100 mg Clozapine (Clozaril -) 50 mg PO DAILY [facility] Last Admin: 12/29/17 09:36 Dose: 50 mg Cyanocobalamin (Vitamin B12 -) 1,000 mcg PO DAILY [facility] Last Admin: 12/29/17 09:33 Dose: 1,000 mcg Heparin Sodium (Porcine) (Heparin -) 5,000 unit SQ BID [facility] Last Admin: 12/29/17 09:33 Dose: 5,000 unit Piperacillin Sod/Tazobactam Sod (Zosyn 3.375gm Ivpb (Pre-Docked)) 3.375 gm in 50 mls @ 100 mls/hr IVPB Q8H-IV [facility]; Protocol Last Admin: 12/29/17 09:32 Dose: 100 mls/hr Losartan Potassium (Cozaar -) 50 mg PO DAILY [facility] Last Admin: 12/29/17 09:33 Dose: 50 mg Multivitamins/Minerals/Vitamin C (Tab-A-Vit -) 1 tab PO DAILY [facility] Last Admin: 12/29/17 09:33 Dose: 1 tab Polyethylene Glycol (Miralax (For Daily Use) -) 17 gm PO BID [facility] Last Admin: 12/29/17 09:33 Dose: 17 gm - Objective Vital Signs: Vital Signs Temperature 97.8 F 12/29/17 14:05 Pulse Rate 97 H 12/29/17 14:05 Respiratory Rate 18 12/29/17 14:05 Blood Pressure 98/56 12/29/17 14:05 O2 Sat by Pulse Oximetry (%) 93 L 12/29/17 14:05 Constitutional: Yes: No Distress, Calm Cardiovascular: Yes: Regular Rate and Rhythm Respiratory: Yes: Regular, CTA Bilaterally Gastrointestinal: Yes: Normal Bowel Sounds, Soft Musculoskeletal: Yes: WNL Extremities: Yes: WNL Neurological: Yes: Alert Psychiatric: Yes: Alert Labs: CBC, BMP 12/28/17 07:20 12/28/17 07:20 Assessment/Plan - Problems (1) Pneumonia Code(s): J18.9 - PNEUMONIA, UNSPECIFIED ORGANISM Qualifiers: Pneumonia type: due to unspecified organism Laterality: right Lung location: upper lobe of lung Qualified Code(s): J18.1 - Lobar pneumonia, unspecified organism (2) Blood pressure abnormally low Code(s): R03.1 - NONSPECIFIC LOW BLOOD-[place] 3 dizziness 4 tachycardia 5 leukocytosis plan continue abx wbc marginally down will recheck wbc tomorrow rest contnue current mgmt
--- NOTE | 2017-12-29 16:38 | PN ---
Progress Note, Physician History of Present Illness: feeling good - Current Medication List Current Medications: Active Medications Acetaminophen (Tylenol -) 650 mg PO Q6H PRN PRN Reason: FEVER Amlodipine Besylate (Norvasc -) 5 mg PO DAILY [facility] Last Admin: 12/29/17 09:33 Dose: 5 mg Cholecalciferol (Vitamin D3 -) 1,000 unit PO DAILY [facility] Last Admin: 12/29/17 09:33 Dose: 1,000 unit Clozapine (Clozaril -) 100 mg PO HS [facility] Last Admin: 12/28/17 21:05 Dose: 100 mg Clozapine (Clozaril -) 50 mg PO DAILY [facility] Last Admin: 12/29/17 09:36 Dose: 50 mg Cyanocobalamin (Vitamin B12 -) 1,000 mcg PO DAILY [facility] Last Admin: 12/29/17 09:33 Dose: 1,000 mcg Heparin Sodium (Porcine) (Heparin -) 5,000 unit SQ BID [facility] Last Admin: 12/29/17 09:33 Dose: 5,000 unit Piperacillin Sod/Tazobactam Sod (Zosyn 3.375gm Ivpb (Pre-Docked)) 3.375 gm in 50 mls @ 100 mls/hr IVPB Q8H-IV [facility]; Protocol Last Admin: 12/29/17 09:32 Dose: 100 mls/hr Losartan Potassium (Cozaar -) 50 mg PO DAILY [facility] Last Admin: 12/29/17 09:33 Dose: 50 mg Multivitamins/Minerals/Vitamin C (Tab-A-Vit -) 1 tab PO DAILY [facility] Last Admin: 12/29/17 09:33 Dose: 1 tab Polyethylene Glycol (Miralax (For Daily Use) -) 17 gm PO BID [facility] Last Admin: 12/29/17 09:33 Dose: 17 gm - Objective Vital Signs: Vital Signs Temperature 97.8 F 12/29/17 14:05 Pulse Rate 97 H 12/29/17 14:05 Respiratory Rate 18 12/29/17 14:05 Blood Pressure 98/56 12/29/17 14:05 O2 Sat by Pulse Oximetry (%) 93 L 12/29/17 14:05 Constitutional: Yes: No Distress HENT: Yes: Atraumatic Neck: Yes: Supple Cardiovascular: Yes: Regular Rate and Rhythm Respiratory: Yes: CTA Bilaterally Gastrointestinal: Yes: Normal Bowel Sounds Extremities: Yes: WNL Neurological: Yes: Alert, Oriented Labs: CBC, BMP 12/28/17 07:20 12/28/17 07:20 Problem List - Problems (1) Pneumonia Assessment/Plan: iv abx fu labs id on board stable Code(s): J18.9 - PNEUMONIA, UNSPECIFIED ORGANISM Qualifiers: Pneumonia type: due to unspecified organism Laterality: right Lung location: upper lobe of lung Qualified Code(s): J18.1 - Lobar pneumonia, unspecified organism (2) Blood pressure abnormally low Assessment/Plan: monitor Code(s): R03.1 - NONSPECIFIC LOW BLOOD-PRESSURE READING
[2017-12-29] MEDS: cloZAPine 100 MG TABLET PO SCH (21:44)
[2017-12-29 22:45] LABS: ALBUMIN 3.2 g/dl (3.5-5.0); ALK PHOS 61 U/L (32-92); ANION GAP 8 (8-16); BILIRUBIN,TOTAL 0.4 mg/dl (0.2-1.0); BLOOD UREA NITROGEN 23 mg/dl (7-18); CHLORIDE 106 mmol/L (98-107); CO2 23 mmol/L (22-28); CREATININE 0.8 mg/dl (0.6-1.3); GLUCOSE,RANDOM 118 mg/dl (74-106); POTASSIUM 4.2 mmol/L (3.5-5.1); SGOT/AST 23 U/L (10-42); SGPT/ALT 17 U/L (10-40); SODIUM 137 mmol/L (136-145); TOT PROT 6.8 g/dl (6.4-8.3)
[2017-12-30] MEDS: PIPERACILLIN/TAZOB 3.375 GM 3.375 GM/50 ML BAG IVPB SCH ×2 (01:32→10:23)
[2017-12-30 09:13] LABS: HEMATOCRIT 33.9 % (35.4-49); HEMOGLOBIN 11.4 GM/dl (11.7-16.9); MCH 31.8 pg (25.7-33.7); MCHC 33.8 g/dl (32.0-35.9); MEAN CELL VOLUME 94.2 fl (80-96); MEAN PLT VOLUME 9.4 fl (7.5-11.1); PLATELET COUNT 219 K/MM3 (134-434); RBC 3.59 M/mm3 (4.00-5.60); WHITE BLOOD COUNT 10.6 K/mm3 (4.0-10.8)
[2017-12-30] MEDS ORDERED: PT OWN MED DRAWER 7, Y5N ONE (10:09)
[2017-12-30] MEDS: HEPARIN NA (PORCINE) 5,000 UNITS/ML 1ML VIAL SQ SCH (10:20)
[2017-12-30] MEDS: CHOLECALCIFEROL (VITAMIN D3) 1,000 UNIT TABLET (FP) PO SCH (10:21)
[2017-12-30] MEDS: amLODIPine BESYLATE 5 MG TABLET (FP) PO SCH (10:21)
[2017-12-30] MEDS: MULTIVITAMINS (DAILY MVI) TABLET (FP) PO SCH (10:21)
[2017-12-30] MEDS: CYANOCOBALAMIN 1,000 MCG TABLET (FP) PO SCH (10:21)
[2017-12-30] MEDS: cloZAPine 25 MG TABLET PO SCH (10:22)
[2017-12-30] MEDS: LOSARTAN POTASSIUM 50 MG TABLET (FP) PO SCH (10:22)
[2017-12-30] MEDS: POLYETHYLENE GLYCOL 3350 119 GM BTL PO SCH (10:24)
--- NOTE | 2017-12-30 13:38 | DS ---
Physical Examination Vital Signs: Vital Signs Temperature 98.6 F 12/30/17 10:28 Pulse Rate 89 12/30/17 10:28 Respiratory Rate 18 12/30/17 10:28 Blood Pressure 108/68 12/30/17 10:28 O2 Sat by Pulse Oximetry (%) 95 12/30/17 08:47 Constitutional: Yes: No Distress HENT: Yes: Atraumatic Neck: Yes: Supple Cardiovascular: Yes: Regular Rate and Rhythm Respiratory: Yes: CTA Bilaterally Gastrointestinal: Yes: Normal Bowel Sounds Extremities: Yes: WNL Neurological: Yes: Alert, Oriented Labs: CBC, BMP 12/30/17 07:35 12/29/17 16:55 Discharge Summary Reason For Visit: LOW BLOOD PRESSURE Current Active Problems Pneumonia (Acute) - Instructions Referrals: Jayda Rankin [Primary Care Provider] - - Home Medications Comprehensive Discharge Medication List: Ambulatory Orders Amlodipine Besylate 5 mg PO DAILY 12/16/15 Cholecalciferol (Vitamin D3) [Vitamin D3] 2,000 unit PO DAILY 12/16/15 Cyanocobalamin [Vitamin B12 -] 1,000 mg PO DAILY 12/16/15 Losartan Potassium 50 mg PO DAILY 12/16/15 Multivitamins [Multivit ([facility] Form[facility])] 1 tab PO DAILY 12/16/15 Polyethylene Glycol 3350 [Miralax 119 gm Btl -] 17 gm PO BID PRN 12/16/15 Clozapine [Clozaril] 50 mg PO DAILY 12/17/15 Clozapine [Clozaril] 100 mg PO HS 12/17/15 Amoxicillin/Potassium Clav [Augmentin 875-125 Tablet] 1 each PO BID #14 tablet 12/30/17 doing well dc home on po augmentin
[2017-12-30 14:09] VITALS: BP 95/65; PULSE 87; TEMP 97.7
--- NOTE | 2017-12-30 15:12 | PN ---
Progress Note, Physician History of Present Illness: doing much better sitting in chair no complaints breathing much better wbc has normalized - Current Medication List Current Medications: Active Medications Acetaminophen (Tylenol -) 650 mg PO Q6H PRN PRN Reason: FEVER Amlodipine Besylate (Norvasc -) 5 mg PO DAILY [facility] Last Admin: 12/30/17 10:21 Dose: 5 mg Cholecalciferol (Vitamin D3 -) 1,000 unit PO DAILY [facility] Last Admin: 12/30/17 10:21 Dose: 1,000 unit Clozapine (Clozaril -) 100 mg PO HS [facility] Last Admin: 12/29/17 21:44 Dose: 100 mg Clozapine (Clozaril -) 50 mg PO DAILY [facility] Last Admin: 12/30/17 10:22 Dose: 50 mg Cyanocobalamin (Vitamin B12 -) 1,000 mcg PO DAILY [facility] Last Admin: 12/30/17 10:21 Dose: 1,000 mcg Heparin Sodium (Porcine) (Heparin -) 5,000 unit SQ BID [facility] Last Admin: 12/30/17 10:20 Dose: 5,000 unit Piperacillin Sod/Tazobactam Sod (Zosyn 3.375gm Ivpb (Pre-Docked)) 3.375 gm in 50 mls @ 100 mls/hr IVPB Q8H-IV [facility]; Protocol Last Admin: 12/30/17 10:23 Dose: 100 mls/hr Losartan Potassium (Cozaar -) 50 mg PO DAILY [facility] Last Admin: 12/30/17 10:22 Dose: 50 mg Multivitamins/Minerals/Vitamin C (Tab-A-Vit -) 1 tab PO DAILY [facility] Last Admin: 12/30/17 10:21 Dose: 1 tab Polyethylene Glycol (Miralax (For Daily Use) -) 17 gm PO BID [facility] Last Admin: 12/30/17 10:24 Dose: 17 gm - Objective Vital Signs: Vital Signs Temperature 97.7 F 12/30/17 14:08 Pulse Rate 87 12/30/17 14:08 Respiratory Rate 18 12/30/17 14:08 Blood Pressure 95/65 12/30/17 14:08 O2 Sat by Pulse Oximetry (%) 98 12/30/17 14:09 Constitutional: Yes: No Distress, Calm Neck: Yes: Supple, Trachea Midline Cardiovascular: Yes: Regular Rate and Rhythm Respiratory: Yes: Regular, CTA Bilaterally Gastrointestinal: Yes: Normal Bowel Sounds, Soft Musculoskeletal: Yes: WNL Extremities: Yes: WNL Neurological: Yes: Alert, Oriented Psychiatric: Yes: Alert, Oriented Labs: CBC, BMP 12/30/17 07:35 12/29/17 16:55 Assessment/Plan - Problems (1) Pneumonia Code(s): J18.9 - PNEUMONIA, UNSPECIFIED ORGANISM Qualifiers: Pneumonia type: due to unspecified organism Laterality: right Lung location: upper lobe of lung Qualified Code(s): J18.1 - Lobar pneumonia, unspecified organism (2) Blood pressure abnormally low Code(s): R03.1 - NONSPECIFIC LOW BLOOD-[place] 3 dizziness 4 tachycardia 5 leukocytosis plan can switch to oral abx augmentin wbc normal incentive winter rest as per the team
== END 2017-12-30 16:55 | disposition home or self-care (01) | DRG 195 ==
LOC: FER 14:34 → FM/S 17:48 → UNDOADMIN 22:12 → FM/S 22:12
PROVIDERS: ADMIT Internal Medicine; ATTEND Internal Medicine
DX: J18.9 Pneumonia, unspecified organism (principal); I95.9 Hypotension, unspecified; F25.9 Schizoaffective disorder, unspecified; I10 Essential (primary) hypertension; R73.03 Prediabetes; R42 Dizziness and giddiness; E78.00 Pure hypercholesterolemia, unspecified
CPT/HCPCS: 36415; 71046-TC-FY; 80053; 81003; 81015; 83605; 84484; 85025; 85027; 87040; 87086; 87899; 93005; 99283-25; J1644; J7030

== ENCOUNTER 2018-07-07 10:25 | Emergency (ER) | payer OTHER ==
--- NOTE | 2018-07-07 10:32 | PDOC ---
History of Present Illness - General Chief Complaint: Nausea/Vomiting Stated Complaint: VOMITING Time Seen by Provider: 07/07/18 10:31 History Source: Patient Exam Limitations: Physical Impairment (mild intellectual disability, but answers all questions appropriately.) - History of Present Illness Initial Comments: Pt is a 52 yo M, with PMH of HTN (BP meds stopped as BP has improved), HLD, schizoaffective disorder, and borderline DM, who is presenting with complaints of nausea, vomiting, and loose stool x1 day. Pt states he ate a meatball gyro for lunch yesterday. In the late afternoon, he had 1 episode of NBNB vomiting and had 2 episodes of loose brown stool last night. 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 Pt states he "feels better after throwing up" and has no active complaints at this time. There was no associated abdominal pain/cramping, no testicular pain, and no fever/chills. Pt also complains of dry nasal congestion over the past 2 days. Pt was able to tolerate a small breakfast this AM, and is still passing flatulence today. Pt denies any fevers/ chills, headache, vision changes, syncope, chest pain, palpitations, SOB, urinary symptoms, or leg swelling. Social: Pt denies any cigarette, alcohol, or drug use. Pt denies any recent travel or sick contacts. Surgical: no relevant history. Family: no relevant history. 07/07/18 11:31 Past History - Travel Traveled outside of the country in the last 30 days: No Close contact w/someone who was outside of country & ill: No - Past Medical History Allergies/Adverse Reactions: Allergies Allergy/AdvReac Type Severity Reaction Status Date / Time No Known Allergies Allergy Verified 07/03/17 00:56 Home Medications: Ambulatory Orders Cholecalciferol (Vitamin D3) [Vitamin D3] 2,000 unit PO DAILY 12/16/15 Cyanocobalamin [Vitamin B12 -] 1,000 mg PO DAILY 12/16/15 Multivitamins [Multivit ([facility] Formulary)] 1 tab PO DAILY 12/16/15 Polyethylene Glycol 3350 [Miralax 119 gm Btl -] 17 gm PO BID PRN 12/16/15 Clozapine [Clozaril] 50 mg PO DAILY 12/17/15 Clozapine [Clozaril] 100 mg PO HS 12/17/15 Aspirin [Aspirin EC] 81 mg PO DAILY 07/07/18 [place]-3 Fatty Acids [[place]-3] 1,000 mg PO BID 07/07/18 Simvastatin 20 mg PO HS 07/07/18 COPD: No Diabetes: Yes (BORDERLINE) HTN: Yes Hypercholesterolemia: Yes Psychiatric Problems: Yes (SCHIZOAFFECTIVE DISORDER) - Surgical History Abdominal Surgery: No Appendectomy: No Cholecystectomy: No GI Surgery: No - Immunization History Immunization Up to Date: Yes - Suicide/Smoking/Psychosocial Hx Smoking History: Never smoked Have you smoked in the past 12 months: No Hx Alcohol Use: No Drug/Substance Use Hx: No Substance Use Type: None Hx Substance Use Treatment: No Review of Systems - Review of Systems Able to Perform ROS?: Yes Is the patient limited [place] proficient: No Constitutional: Yes: See HPI, Loss of Appetite, Weight Stable. No: Chills, Diaphoresis, Fever, Weakness HEENTM: Yes: Nose Congestion. No: Blurred Vision, Double Vision, Nose Bleeding , Throat Pain, Throat Swelling Respiratory: No: Cough, Orthopnea, Shortness of Breath, Wheezing, Productive cough Cardiac (ROS): No: Chest Pain, Edema, Irregular Heart Rate, Lightheadedness, Palpitations, Syncope, Chest Tightness ABD/GI: Yes: See HPI, Diarrhea, Nausea, Poor Appetite, Poor Fluid Intake, Vomiting. No: Abdominal Distended, Constipated, Rectal Bleeding, Indigestion, Abdominal cramping : No: Burning, Dysuria, Frequency, Hematuria, Pain, Urgency Musculoskeletal: No: Back Pain, Joint Pain Integumentary: No: Rash Neurological: No: Headache, Weakness, Dizziness Psychiatric: No: Sleep Pattern Change, Change in Appetite Endocrine: No: Increased Urine, Change in Weight Hematologic/Lymphatic: No: Anemia, Blood Clots, Easy Bleeding, Easy Bruising *Physical Exam - Physical Exam Comments: Vitals stable, pt afebrile. PE showed pt alert and oriented. construction technician generally intact, muscular strength and sensation intact. Oral membranes clear, no pharyngeal erythema or exudates. Dry nasal discharge present. Clear heart and lung sounds, no JVD, b/l pedal edema, or heart murmur. No wheezing/stridor/ focal deficits, no accessory muscle use with breathing, no respiratory distress. No abdominal or CVA tenderness to palpation, no rebound, no guarding. Abdomen soft, flat, non-distended. No skin rash or jaundice. 07/07/18 11:34 General Appearance: Yes: Nourished, Appropriately Dressed. No: Apparent Distress Medical Decision Making - Medical Decision Making Pt was seen at bedside, also will be seen by attending Dr. Goodson. Pt presenting with complaints of nausea, vomiting, and loose stool x1 day. Pt states he ate a meatball gyro for lunch yesterday. In the late afternoon, he had 1 episode of NBNB vomiting and had 2 episodes of loose brown stool last night. 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 Pt states he "feels better after throwing up" and has no active complaints at this time. There was no associated abdominal pain/cramping, no testicular pain, and no fever/chills. Pt also complains of dry nasal congestion over the past 2 days. Pt was able to tolerate a small breakfast this AM, and is still passing flatulence today. Pt denies any fevers/chills, headache, vision changes, syncope, chest pain, palpitations, SOB, urinary symptoms, or leg swelling. Vitals stable, pt afebrile. PE showed pt alert and oriented. construction technician generally intact, muscular strength and sensation intact. Oral membranes clear, no pharyngeal erythema or exudates. Dry nasal discharge present. Clear heart and lung sounds, no JVD, b/l pedal edema, or heart murmur. No wheezing/stridor/ focal deficits, no accessory muscle use with breathing, no respiratory distress. No abdominal or CVA tenderness to palpation, no rebound, no guarding. Abdomen soft, flat, non-distended. No skin rash or jaundice. Considering gastroenteritis (likely 2/2 to food toxin or viral illness -- pt has both nausea/vomiting and diarrhea) vs other viral illness (influenza) vs diverticulitis, vs colitis. Unlikely obstruction as pt is passing stool as well , has been able to tolerate so PO intake, no abdominal surgeries in the past. Pt has a soft, non-tender abdomen, unlikely appendicitis or other surgical acute abdomen. No complaints of testicular pain or swelling. Ordered work-up including rapid influenza. Provided 650 mg PO tylenol and 4 mg SL zofran for improvement of nausea and discomfort. Will continue to reassess pt and monitor for symptomatic improvement. 07/07/18 10:50 Influenza swab is send-out test to [facility]. Lab will call the pt for follow-up with positive results. Pt able to tolerate PO intake without any further nausea or vomiting. Pt can be discharged to home with follow-up. Pt advised to follow-up with PCP in 1-2 days. Strict return precautions provided with pt understanding. 07/07/18 12:10 *DC/Admit/Observation/Transfer Diagnosis at time of Disposition: Nausea and vomiting Qualifiers: Vomiting type: unspecified Vomiting Intractability: non-intractable Qualified Code(s): R11.2 - Nausea with vomiting, unspecified - Discharge Dispostion Disposition: HOME Condition at time of disposition: Good Decision to Admit order: No - Referrals Referrals: Jayda Rankin [Primary Care Provider] - - Patient Instructions Printed Discharge Instructions: DI for Diarrhea and Traveler's Diarrhea -- Adult, DI for Vomiting -- Adult Additional Instructions: You were seen in the ER today for vomiting and diarrhea. The lab will call you if you have a positive influenza result. Please follow-up with your primary care doctor within 1-2 days to discuss your visit and make sure your symptoms have improved. Please return to the ER if you have any worsening pain, blood in your stool or vomit, development of fevers or chills that does not improve with ibuprofen or tylenol, loss of consciousness, inability to tolerate food or fluids, or any other concerns. - Post Discharge Activity
[2018-07-07 10:37] VITALS: BP 115/68; PULSE 98; TEMP 98.7; BMI 20.1
[2018-07-07] MEDS ORDERED: ACETAMINOPHEN 325 MG TABLET (FP) PO ONE (10:46)
[2018-07-07] MEDS ORDERED: ONDANSETRON *ODT* 4 MG TABLET SL ONE (10:47)
[2018-07-07] MEDS ORDERED: ONDANSETRON *ODT* 4 MG TABLET ONE (10:49)
[2018-07-07] MEDS ORDERED: ACETAMINOPHEN 325 MG TABLET (FP) ONE (10:49)
--- NOTE | 2018-07-07 11:34 | PDOC ---
Attending Attestation - Resident Resident Name: Shoshana Ferrer - ED Attending Attestation I have performed the following: I have examined & evaluated the patient, The case was reviewed & discussed with the resident, I agree w/resident's findings & plan, Exceptions are as noted - HPI HPI: 07/07/18 11:32 52 M with h/o HTN, schizoaffective disorder, and borderline DM presenting to ED with N+V+D since last night. Pt states that he ate a meatball parm sandwich in the afternoon that upset his stomach. He states that he vomited last night and also had loose stools. This morning pt ate breakfast and once again vomited afterwards. Denies any abdominal pain. Denies F/C. - Physicial Exam PE: 07/07/18 11:33 "GENERAL: Awake, alert, and fully oriented, in no acute distress. HEAD: No signs of trauma EYES: PERRLA, EOMI, sclera anicteric, conjunctiva clear ENT: Auricles normal inspection, hearing grossly normal, nares patent, oropharynx clear without exudates. Moist mucosa NECK: Nontender, no stepoffs, Normal ROM, supple, no lymphadenopathy, JVD, or masses LUNGS: Breath sounds equal, clear to auscultation bilaterally. No wheezes, and no crackles HEART: Regular rate and rhythm, normal S1 and S2, no murmurs, rubs or gallops ABDOMEN: Soft, nontender, normoactive bowel sounds. No guarding, no rebound. No masses EXTREMITIES: Normal range of motion, no edema. No clubbing or cyanosis. No cords, erythema, or tenderness NEUROLOGICAL: Cranial nerves II through XII intact. 5/5 strength and sensation in all extremities, Normal speech, normal gait, normal cerebellar function SKIN: Warm, Dry, normal turgor, no rashes or lesions noted. - Medical Decision Making 07/07/18 11:33 52 M with N+V+D. Suspect viral gastroenteritis vs food poisoning. Pt with completely benign abdominal exam today. Will check for flu given [place] [facility] [place]. - Zofran - PO challenge 07/07/18 12:11 Pt tolerating PO without vomiting Repeat abdominal exam benign Pt is well appearing, with normal vitals. Clinically stable for DC at this time. I discussed the physical exam findings, ancillary test results and final diagnoses with the patient. I answered all of the patient's questions. The patient was satisfied with the care received and felt comfortable with the discharge plan and treatment plan. The patient agrees to follow up with the primary care physician within 24-72 hours.
== END 2018-07-07 12:17 | disposition home or self-care (01) ==
LOC: FER 10:25
DX: R11.2 Nausea with vomiting, unspecified (principal); I10 Essential (primary) hypertension; F25.9 Schizoaffective disorder, unspecified; R73.03 Prediabetes; E78.5 Hyperlipidemia, unspecified; R19.7 Diarrhea, unspecified
CPT/HCPCS: 87804; 99282-25; Q0162

== ENCOUNTER 2021-05-06 00:16 | Emergency (ER) | payer OTHER ==
[2021-05-06 01:22] VITALS: BP 107/70; PULSE 87; TEMP 98.7; BMI 24.3
[2021-05-06 05:27] LABS: ALBUMIN 2.9 g/dl (3.4-5.0); BILIRUBIN,TOTAL 0.5 mg/dL (0.2-1); BLOOD UREA NITROGEN 31.2 mg/dL (7-18); CALCIUM 9.3 mg/dL (8.5-10.1); CREATININE 0.8 mg/dL (0.55-1.3)
== END 2021-05-06 06:26 ==
LOC: JER 00:16
DX: S86.891A Other injury of other muscle(s) and tendon(s) at lower leg level, right leg, initial encounter (principal); S86.892A Other injury of other muscle(s) and tendon(s) at lower leg level, left leg, initial encounter; R19.7 Diarrhea, unspecified
CPT/HCPCS: 36415; 80053; 82550; 82553; 99283-25

== ENCOUNTER 2021-05-10 01:29 | Inpatient (IN) | payer OTHER ==
[2021-05-10] MEDS ORDERED: SODIUM CHLORIDE 0.9% 500 ML INFUS.BAG IV ONE (01:41)
[2021-05-10] MEDS ORDERED: ACETAMINOPHEN 1000 MG/100 ML VIAL IVPB ONE (01:53)
[2021-05-10] MEDS ORDERED: ACETAMINOPHEN INJECTION 100 ML IVPB ONE (02:17)
[2021-05-10] MEDS ORDERED: PIPERACILLIN/TAZOB 4.5 GM 4.5 GM in DEXTROSE 5%-WATER 100 ML IVPB ONE (02:22)
[2021-05-10] MEDS ORDERED: VANCOMYCIN 1 GM in D5W (PRE-DOCKED) 1,000 MG/250 ML IVPB ONE (02:22)
[2021-05-10 02:27] LABS: HEMATOCRIT 33.2 % (35.4-49); HEMOGLOBIN 11.2 GM/dL (11.7-16.9); MCH 31.6 pg (25.7-33.7); MCHC 33.7 g/dl (32.0-35.9); MEAN CELL VOLUME 93.7 fl (80-96); MEAN PLT VOLUME 10.1 fl (7.5-11.1); PLATELET COUNT 211 10^3/uL (134-434); RBC 3.54 M/mm3 (4.00-5.60); RDW 13.5 % (11.9-15.9); WHITE BLOOD COUNT 25.5 K/mm3 (4.0-10.0)
[2021-05-10 02:32] LABS: VENOUS BASE EXCESS 1.1 mmol/L (-2-2); VENOUS O2 SATURATION 89.9 % (70-80); VENOUS PH 7.469 (7.310-7.410)
[2021-05-10 02:40] LABS: CHLORIDE 104 mmol/L (98-107); INR 1.76 (0.83-1.09); PROTHROMBIN TIME (PATIENT) 20.7 SEC (9.7-13.0); SODIUM 138 mmol/L (136-145)
[2021-05-10 02:42] LABS: ACTIVATED PTT 32.1 SECONDS (25.2-36.5); CALCIUM 8.3 mg/dL (8.5-10.1)
[2021-05-10 02:43] LABS: ANION GAP 10 MMOL/L (8-16); BLOOD UREA NITROGEN 29.9 mg/dL (7-18); CO2 25 mmol/L (21-32); GLUCOSE,RANDOM 148 mg/dL (74-106)
[2021-05-10] MEDS ORDERED: PIPERACILLIN/TAZOB 4.5 GM 4.5 GM/100 ML BAG IVPB ONE (02:44)
[2021-05-10 02:45] LABS: SGPT/ALT 117 U/L (13-61)
[2021-05-10 02:46] LABS: CREATININE 1.1 mg/dL (0.55-1.3); SGOT/AST 125 U/L (15-37)
[2021-05-10 02:49] LABS: ALK PHOS 135 U/L (45-117)
[2021-05-10 03:01] LABS: ALBUMIN 1.9 g/dl (3.4-5.0)
[2021-05-10] MEDS ORDERED: VANCOMYCIN 1 GRAM (PRE-DOCKED) 1,000 MG/250 ML BAG IVPB ONE (03:30)
[2021-05-10] MEDS: ALBUTEROL SO4 2.5/IPRATROPIUM 0.5 INH SOL 3 ML VIAL.NEB. NEB SCH ×5 (03:51→20:40)
[2021-05-10] MEDS ORDERED: SODIUM CHLORIDE 2,517 ML IV ONE (05:11)
[2021-05-10] MEDS ORDERED: ACETAMINOPHEN 1000 MG/100 ML VIAL IVPB PRN (05:38)
[2021-05-10 06:35] LABS: BASO % 0.6 % (0-2.0); HEMATOCRIT 31.4 % (35.4-49); HEMOGLOBIN 10.7 GM/dL (11.7-16.9); LYMPH % 2.1 % (8-40); MCH 32.5 pg (25.7-33.7); MCHC 34.1 g/dl (32.0-35.9); MEAN CELL VOLUME 95.2 fl (80-96); MEAN PLT VOLUME 10.9 fl (7.5-11.1); MONO % 2.9 % (3.8-10.2); NEUT % 94.4 % (42.8-82.8); PLATELET COUNT 254 10^3/uL (134-434); RDW 13.7 % (11.9-15.9)
[2021-05-10 06:41] LABS: CALCIUM 8.3 mg/dL (8.5-10.1)
[2021-05-10 06:42] LABS: ALBUMIN 1.7 g/dl (3.4-5.0); BLOOD UREA NITROGEN 29.8 mg/dL (7-18); MAGNESIUM 2.5 mg/dL (1.8-2.4)
[2021-05-10 06:45] LABS: CREATININE 1.4 mg/dL (0.55-1.3); PHOSPHOROUS 5.2 mg/dL (2.5-4.9)
[2021-05-10 06:47] LABS: BILIRUBIN,TOTAL 1.2 mg/dL (0.2-1)
[2021-05-10 07:51] LABS: WHITE BLOOD COUNT 31.3 K/mm3 (4.0-10.0)
[2021-05-10 08:04] LABS: EPI CELLS 9 /uL (0-25.1); HYALINE CASTS 7 /uL (0-3.1); PH,URINE 5.5 (5.0-8.0); URINE APPEARANCE CLOUDY; URINE BACTERIA 3 /uL (0-1359); URINE BILIRUBIN 1+ (NEGATIVE); URINE COLOR DK YELLOW; URINE GLUCOSE (UA) NEGATIVE (NEGATIVE); URINE KETONE TRACE (NEGATIVE); URINE LEUK ESTERASE NEGATIVE (NEGATIVE); URINE NITRITE NEGATIVE (NEGATIVE); URINE PROTEIN 2+ (NEGATIVE); URINE WBC 23 /uL (0-25.8)
[2021-05-10 08:53] LABS: URINE RBC 41.2 /uL (0-23.9)
[2021-05-10] MEDS ORDERED: PIPERACILLIN/TAZOB 3.375 GM 3.375 GM in DEXTROSE 5%-WATER - 50 ML IVPB SCH ×2 (10:00→14:15)
[2021-05-10 10:21] LABS: ANISOCYTOSIS 0; HELMET CELLS 0; HOWELL-JOLLY BODIES 0; MACROCYTOSIS 0; OVALOCYTE 0; PLATELET ESTIMATE NORMAL; ROULEAU 0; SICKELED CELLS 0; TARGET CELLS 0; TEAR DROP CELLS 0; TOXIC GRANULATION 0
[2021-05-10] MEDS: SODIUM CHLORIDE 1,000 ML IV SCH (10:30)
[2021-05-10] MEDS ORDERED: PIPERACILLIN/TAZOB 3.375 GM 3.375 GM/50 ML BAG IVPB ONE ×2 (11:24→19:14)
[2021-05-10] MEDS ORDERED: ENOXAPARIN NA (PORCINE) 40 MG/0.4 ML DISP.SYRIN SQ ONE (11:24)
[2021-05-10] MEDS: ENOXAPARIN NA (PORCINE) 40 MG/0.4 ML DISP.SYRIN SQ SCH (11:31)
[2021-05-10] MEDS ORDERED: methylPREDNISolone NA SUCC 40 MG/1 ML VIAL ONE (15:19)
[2021-05-10] MEDS ORDERED: ALBUTEROL SO4 2.5/IPRATROPIUM 0.5 INH SOL 3 ML VIAL.NEB. NEB ONE (15:20)
[2021-05-10] MEDS: methylPREDNISolone NA SUCC 40 MG/1 ML VIAL IVPUSH SCH ×2 (15:25→19:13)
[2021-05-10] MEDS: PIPERACILLIN/TAZOB 3.375 GM 3.375 GM in DEXTROSE 5%-WATER - 50 ML IVPB SCH (19:30)
[2021-05-10] MEDS ORDERED: CLOZAPINE 100 MG PO SCH (22:00)
[2021-05-10] MEDS ORDERED: cloZAPine 25 MG TABLET PO SCH (22:00)
[2021-05-11] MEDS ORDERED: PIPERACILLIN/TAZOB 3.375 GM 3.375 GM/50 ML BAG IVPB ONE ×3 (01:48→22:05)
[2021-05-11] MEDS: PIPERACILLIN/TAZOB 3.375 GM 3.375 GM in DEXTROSE 5%-WATER - 50 ML IVPB SCH ×3 (03:38→22:26)
[2021-05-11] MEDS ORDERED: VANCOMYCIN 1 GM in D5W (PRE-DOCKED) 1,000 MG/250 ML IVPB SCH (04:00)
[2021-05-11 08:29] LABS: HEMATOCRIT 32.8 % (35.4-49); HEMOGLOBIN 11.1 GM/dL (11.7-16.9); MCH 32.3 pg (25.7-33.7); MCHC 33.8 g/dl (32.0-35.9); MEAN CELL VOLUME 95.5 fl (80-96); PLATELET COUNT 251 10^3/uL (134-434); RBC 3.43 M/mm3 (4.00-5.60); RDW 13.6 % (11.9-15.9); WHITE BLOOD COUNT 26.2 K/mm3 (4.0-10.0)
[2021-05-11 08:47] LABS: CALCIUM 8.5 mg/dL (8.5-10.1)
[2021-05-11 08:48] LABS: ALBUMIN 1.6 g/dl (3.4-5.0); BLOOD UREA NITROGEN 36.1 mg/dL (7-18)
[2021-05-11 08:51] LABS: CREATININE 0.7 mg/dL (0.55-1.3)
[2021-05-11 08:53] LABS: BILIRUBIN,TOTAL 0.4 mg/dL (0.2-1); TOT PROT 5.5 g/dl (6.4-8.2)
[2021-05-11] MEDS ORDERED: PIPERACILLIN/TAZOB 3.375 GM 3.375 GM in DEXTROSE 5%-WATER - 50 ML IVPB SCH (10:00)
[2021-05-11] MEDS ORDERED: ASPIRIN COATED 81 MG TABLET.EC ONE (15:38)
[2021-05-11] MEDS ORDERED: ALBUTEROL SO4 2.5/IPRATROPIUM 0.5 INH SOL 3 ML VIAL.NEB. NEB ONE ×3 (15:38→22:04)
[2021-05-11] MEDS ORDERED: ENOXAPARIN NA (PORCINE) 40 MG/0.4 ML DISP.SYRIN SQ ONE (15:39)
[2021-05-11] MEDS ORDERED: SERTRALINE HCL 50 MG TABLET (FP) ONE (15:39)
[2021-05-11] MEDS ORDERED: MULTIVITAMINS (DAILY MVI) TABLET (FP) ONE (15:39)
[2021-05-11] MEDS: SODIUM CHLORIDE 1,000 ML IV SCH (15:51)
[2021-05-11] MEDS: ENOXAPARIN NA (PORCINE) 40 MG/0.4 ML DISP.SYRIN SQ SCH (15:52)
[2021-05-11] MEDS: SERTRALINE HCL 50 MG TABLET (FP) PO SCH (15:52)
[2021-05-11] MEDS: ALBUTEROL SO4 2.5/IPRATROPIUM 0.5 INH SOL 3 ML VIAL.NEB. NEB SCH ×2 (15:52→22:26)
[2021-05-11] MEDS: ASPIRIN COATED 81 MG TABLET.EC PO SCH (15:52)
[2021-05-11] MEDS: MULTIVITAMINS (DAILY MVI) TABLET (FP) PO SCH (15:52)
[2021-05-11] MEDS: CYANOCOBALAMIN 1,000 MCG TABLET (FP) PO SCH (16:04)
[2021-05-11] MEDS: cloZAPine 25 MG TABLET PO SCH (16:04)
[2021-05-11] MEDS: cloZAPine 100 MG TABLET PO SCH (22:26)
[2021-05-12] MEDS ORDERED: PIPERACILLIN/TAZOB 3.375 GM 3.375 GM/50 ML BAG IVPB ONE ×2 (02:55→09:50)
[2021-05-12] MEDS: PIPERACILLIN/TAZOB 3.375 GM 3.375 GM in DEXTROSE 5%-WATER - 50 ML IVPB SCH (03:02)
[2021-05-12] MEDS ORDERED: VANCOMYCIN 1 GM in D5W (PRE-DOCKED) 1,000 MG/250 ML IVPB SCH (04:00)
[2021-05-12] MEDS: SODIUM CHLORIDE 1,000 ML IV SCH (06:45)
[2021-05-12] MEDS ORDERED: PT OWN MED DRAWER 7, Y5N ONE ×2 (07:55→21:54)
[2021-05-12] MEDS ORDERED: ALBUTEROL SO4 2.5/IPRATROPIUM 0.5 INH SOL 3 ML VIAL.NEB. NEB ONE ×2 (07:58→12:41)
[2021-05-12] MEDS: ALBUTEROL SO4 2.5/IPRATROPIUM 0.5 INH SOL 3 ML VIAL.NEB. NEB SCH ×2 (08:03→12:55)
[2021-05-12 08:30] LABS: HEMOGLOBIN 11.3 GM/dL (11.7-16.9); MCH 32.7 pg (25.7-33.7); MCHC 34.3 g/dl (32.0-35.9); MEAN CELL VOLUME 95.3 fl (80-96); MEAN PLT VOLUME 10.4 fl (7.5-11.1); PLATELET COUNT 298 10^3/uL (134-434); RBC 3.46 M/mm3 (4.00-5.60); RDW 13.7 % (11.9-15.9); WHITE BLOOD COUNT 26.5 K/mm3 (4.0-10.0)
[2021-05-12 08:49] LABS: CALCIUM 8.6 mg/dL (8.5-10.1)
[2021-05-12 08:50] LABS: ALBUMIN 1.7 g/dl (3.4-5.0); BLOOD UREA NITROGEN 38.6 mg/dL (7-18)
[2021-05-12 08:53] LABS: CREATININE 0.8 mg/dL (0.55-1.3)
[2021-05-12 08:55] LABS: BILIRUBIN,TOTAL 0.4 mg/dL (0.2-1); TOT PROT 5.9 g/dl (6.4-8.2)
[2021-05-12] MEDS ORDERED: VANCOMYCIN 1 GM in D5W (PRE-DOCKED) 1,000 MG/250 ML IVPB ONE (09:24)
[2021-05-12] MEDS ORDERED: SODIUM CHLORIDE 1,000 ML IV SCH (09:30)
[2021-05-12] MEDS ORDERED: MULTIVITAMINS (DAILY MVI) TABLET (FP) ONE (09:49)
[2021-05-12] MEDS ORDERED: ENOXAPARIN NA (PORCINE) 40 MG/0.4 ML DISP.SYRIN SQ ONE (09:49)
[2021-05-12] MEDS ORDERED: VANCOMYCIN 1 GRAM (PRE-DOCKED) 1,000 MG/250 ML BAG IVPB ONE (09:49)
[2021-05-12] MEDS ORDERED: ASPIRIN COATED 81 MG TABLET.EC ONE (09:49)
[2021-05-12] MEDS: MULTIVITAMINS (DAILY MVI) TABLET (FP) PO SCH (09:52)
[2021-05-12] MEDS: ASPIRIN COATED 81 MG TABLET.EC PO SCH (09:52)
[2021-05-12] MEDS: ENOXAPARIN NA (PORCINE) 40 MG/0.4 ML DISP.SYRIN SQ SCH (09:52)
[2021-05-12 10:01] LABS: ANISOCYTOSIS 0; MACROCYTOSIS 0; PLATELET ESTIMATE NORMAL; ROULEAU 2+
[2021-05-12] MEDS: cloZAPine 25 MG TABLET PO SCH ×3 (10:25→10:28)
[2021-05-12] MEDS: CYANOCOBALAMIN 1,000 MCG TABLET (FP) PO SCH (10:25)
[2021-05-12] MEDS: SERTRALINE HCL 50 MG TABLET (FP) PO SCH (10:41)
[2021-05-12] MEDS ORDERED: CEFTRIAXONE 1 GM/50 ML BAG ONE (12:42)
[2021-05-12] MEDS: CEFTRIAXONE 1 GM in DEXTROSE 5%-WATER - 50 ML IVPB SCH (12:55)
[2021-05-12] MEDS ORDERED: guaiFENesin 200 MG/10 ML 10 ML UNIT-DOSE CUPS PO ONE (14:35)
[2021-05-12] MEDS: cloZAPine 100 MG TABLET PO SCH (22:38)
[2021-05-13] MEDS ORDERED: PT OWN MED DRAWER 7, Y5N ONE ×4 (06:30→21:03)
[2021-05-13] MEDS: cloZAPine 25 MG TABLET PO SCH ×2 (06:34→11:25)
[2021-05-13] MEDS: ALBUTEROL SO4 2.5/IPRATROPIUM 0.5 INH SOL 3 ML VIAL.NEB. NEB SCH ×4 (08:35→20:49)
[2021-05-13 09:24] LABS: HEMATOCRIT 32.7 % (35.4-49); HEMOGLOBIN 10.9 GM/dL (11.7-16.9); MCH 31.7 pg (25.7-33.7); MCHC 33.5 g/dl (32.0-35.9); MEAN CELL VOLUME 94.7 fl (80-96); MEAN PLT VOLUME 10.3 fl (7.5-11.1); PLATELET COUNT 309 10^3/uL (134-434); RBC 3.45 M/mm3 (4.00-5.60); WHITE BLOOD COUNT 18.7 K/mm3 (4.0-10.0)
[2021-05-13 09:41] LABS: ALBUMIN 1.5 g/dl (3.4-5.0); CALCIUM 8.3 mg/dL (8.5-10.1)
[2021-05-13 09:42] LABS: BLOOD UREA NITROGEN 30.6 mg/dL (7-18)
[2021-05-13 09:44] LABS: PHOSPHOROUS 3.3 mg/dL (2.5-4.9)
[2021-05-13 09:45] LABS: CREATININE 0.6 mg/dL (0.55-1.3)
[2021-05-13 09:46] LABS: BILIRUBIN,TOTAL 0.4 mg/dL (0.2-1); TOT PROT 5.2 g/dl (6.4-8.2)
[2021-05-13 10:32] LABS: ANISOCYTOSIS 0; MACROCYTOSIS 1+; PLATELET ESTIMATE NORMAL
[2021-05-13] MEDS ORDERED: cefTRIAXone SODIUM 1 GM VIAL ONE (11:07)
[2021-05-13] MEDS ORDERED: DEXTROSE 5%-WATER - 50 ML IVPB ONE (11:07)
[2021-05-13] MEDS: CEFTRIAXONE 1 GM in DEXTROSE 5%-WATER - 50 ML IVPB SCH (11:23)
[2021-05-13] MEDS: ENOXAPARIN NA (PORCINE) 40 MG/0.4 ML DISP.SYRIN SQ SCH (11:24)
[2021-05-13] MEDS: ASPIRIN COATED 81 MG TABLET.EC PO SCH (11:24)
[2021-05-13] MEDS: MULTIVITAMINS (DAILY MVI) TABLET (FP) PO SCH (11:24)
[2021-05-13] MEDS: SERTRALINE HCL 50 MG TABLET (FP) PO SCH (11:24)
[2021-05-13] MEDS: CYANOCOBALAMIN 1,000 MCG TABLET (FP) PO SCH (11:26)
[2021-05-13] MEDS ORDERED: ALBUTEROL SO4 2.5/IPRATROPIUM 0.5 INH SOL 3 ML VIAL.NEB. NEB ONE (13:00)
[2021-05-13] MEDS: cloZAPine 100 MG TABLET PO SCH (22:00)
[2021-05-14] MEDS: ALBUTEROL SO4 2.5/IPRATROPIUM 0.5 INH SOL 3 ML VIAL.NEB. NEB SCH ×4 (07:55→20:11)
[2021-05-14] MEDS ORDERED: PT OWN MED DRAWER 7, Y5N ONE ×2 (07:55→21:00)
[2021-05-14] MEDS: cloZAPine 25 MG TABLET PO SCH ×2 (08:01→10:33)
[2021-05-14] MEDS ORDERED: ALBUTEROL SO4 2.5/IPRATROPIUM 0.5 INH SOL 3 ML VIAL.NEB. NEB ONE (09:15)
[2021-05-14 09:37] LABS: HEMATOCRIT 35.5 % (35.4-49); HEMOGLOBIN 11.8 GM/dL (11.7-16.9); MCH 31.7 pg (25.7-33.7); MCHC 33.3 g/dl (32.0-35.9); MEAN CELL VOLUME 95.2 fl (80-96); MEAN PLT VOLUME 10.6 fl (7.5-11.1); PLATELET COUNT 315 10^3/uL (134-434); RBC 3.73 M/mm3 (4.00-5.60); RDW 13.9 % (11.9-15.9); WHITE BLOOD COUNT 17.7 K/mm3 (4.0-10.0)
[2021-05-14 10:09] LABS: BLOOD UREA NITROGEN 29.2 mg/dL (7-18); CALCIUM 8.8 mg/dL (8.5-10.1)
[2021-05-14 10:10] LABS: MAGNESIUM 2.2 mg/dL (1.8-2.4)
[2021-05-14 10:12] LABS: PHOSPHOROUS 3.3 mg/dL (2.5-4.9)
[2021-05-14 10:13] LABS: CREATININE 0.6 mg/dL (0.55-1.3)
[2021-05-14 10:14] LABS: BILIRUBIN,TOTAL 0.5 mg/dL (0.2-1); TOT PROT 5.9 g/dl (6.4-8.2)
[2021-05-14 10:21] LABS: ALBUMIN 1.8 g/dl (3.4-5.0)
[2021-05-14] MEDS ORDERED: DEXTROSE 5%-WATER - 50 ML IVPB ONE (10:26)
[2021-05-14] MEDS ORDERED: cefTRIAXone SODIUM 1 GM VIAL ONE (10:26)
[2021-05-14] MEDS: CYANOCOBALAMIN 1,000 MCG TABLET (FP) PO SCH (10:32)
[2021-05-14] MEDS: ENOXAPARIN NA (PORCINE) 40 MG/0.4 ML DISP.SYRIN SQ SCH (10:32)
[2021-05-14] MEDS: CEFTRIAXONE 1 GM in DEXTROSE 5%-WATER - 50 ML IVPB SCH (10:32)
[2021-05-14] MEDS: ASPIRIN COATED 81 MG TABLET.EC PO SCH (10:33)
[2021-05-14] MEDS: MULTIVITAMINS (DAILY MVI) TABLET (FP) PO SCH (10:33)
[2021-05-14] MEDS: SERTRALINE HCL 50 MG TABLET (FP) PO SCH (10:33)
[2021-05-14] MEDS ORDERED: POLYETHYLENE GLYCOL (HEALTHYLAX) 3350 17 GM PACKET PO ONE (11:32)
[2021-05-14] MEDS: cloZAPine 100 MG TABLET PO SCH (21:06)
[2021-05-15] MEDS: cloZAPine 25 MG TABLET PO SCH ×2 (05:59→09:24)
[2021-05-15] MEDS: ALBUTEROL SO4 2.5/IPRATROPIUM 0.5 INH SOL 3 ML VIAL.NEB. NEB SCH ×4 (08:38→20:50)
[2021-05-15 09:07] LABS: BASO % 0.1 % (0-2.0); EOS % 2.5 % (0-4.5); HEMATOCRIT 32.4 % (35.4-49); HEMOGLOBIN 10.8 GM/dL (11.7-16.9); LYMPH % 7.2 % (8-40); MCHC 33.4 g/dl (32.0-35.9); MEAN CELL VOLUME 95.8 fl (80-96); MEAN PLT VOLUME 10.4 fl (7.5-11.1); MONO % 6.8 % (3.8-10.2); NEUT % 83.4 % (42.8-82.8); PLATELET COUNT 304 10^3/uL (134-434); RBC 3.38 M/mm3 (4.00-5.60); RDW 14.1 % (11.9-15.9); WHITE BLOOD COUNT 14.5 K/mm3 (4.0-10.0)
[2021-05-15] MEDS ORDERED: PT OWN MED DRAWER 7, Y5N ONE ×2 (09:12→20:41)
[2021-05-15] MEDS ORDERED: cefTRIAXone SODIUM 1 GM VIAL ONE (09:13)
[2021-05-15] MEDS ORDERED: DEXTROSE 5%-WATER - 50 ML IVPB ONE (09:13)
[2021-05-15] MEDS: ASPIRIN COATED 81 MG TABLET.EC PO SCH (09:23)
[2021-05-15] MEDS: MULTIVITAMINS (DAILY MVI) TABLET (FP) PO SCH (09:23)
[2021-05-15] MEDS: SERTRALINE HCL 50 MG TABLET (FP) PO SCH (09:23)
[2021-05-15] MEDS: CEFTRIAXONE 1 GM in DEXTROSE 5%-WATER - 50 ML IVPB SCH (09:23)
[2021-05-15] MEDS: CYANOCOBALAMIN 1,000 MCG TABLET (FP) PO SCH (09:24)
[2021-05-15] MEDS: ENOXAPARIN NA (PORCINE) 40 MG/0.4 ML DISP.SYRIN SQ SCH (09:24)
[2021-05-15] MEDS: POLYETHYLENE GLYCOL (HEALTHYLAX) 3350 17 GM PACKET PO SCH (09:24)
[2021-05-15 10:09] LABS: ANISOCYTOSIS 0; HELMET CELLS 0; HOWELL-JOLLY BODIES 0; MACROCYTOSIS 0; OVALOCYTE 0; PLATELET ESTIMATE NORMAL; ROULEAU 0; SICKELED CELLS 0; TARGET CELLS 0; TEAR DROP CELLS 0; TOXIC GRANULATION 0
[2021-05-15 10:23] LABS: ALBUMIN 1.6 g/dl (3.4-5.0); BLOOD UREA NITROGEN 22.8 mg/dL (7-18); CALCIUM 8.4 mg/dL (8.5-10.1); MAGNESIUM 2.2 mg/dL (1.8-2.4)
[2021-05-15 10:26] LABS: CREATININE 0.5 mg/dL (0.55-1.3); PHOSPHOROUS 2.9 mg/dL (2.5-4.9)
[2021-05-15 10:28] LABS: BILIRUBIN,TOTAL 0.4 mg/dL (0.2-1); TOT PROT 5.2 g/dl (6.4-8.2)
[2021-05-15] MEDS: SENNOSIDES 8.8 MG/5 ML BULK BOTTLE PO SCH (21:00)
[2021-05-15] MEDS: cloZAPine 100 MG TABLET PO SCH ×2 (21:01→21:03)
[2021-05-16] MEDS ORDERED: PT OWN MED DRAWER 7, Y5N ONE ×3 (05:53→20:52)
[2021-05-16] MEDS: cloZAPine 25 MG TABLET PO SCH ×2 (06:08→09:13)
[2021-05-16] MEDS: ALBUTEROL SO4 2.5/IPRATROPIUM 0.5 INH SOL 3 ML VIAL.NEB. NEB SCH ×4 (08:46→20:05)
[2021-05-16] MEDS ORDERED: cefTRIAXone SODIUM 1 GM VIAL ONE (08:57)
[2021-05-16] MEDS ORDERED: DEXTROSE 5%-WATER - 50 ML IVPB ONE (08:57)
[2021-05-16] MEDS: POLYETHYLENE GLYCOL (HEALTHYLAX) 3350 17 GM PACKET PO SCH (09:11)
[2021-05-16] MEDS: CEFTRIAXONE 1 GM in DEXTROSE 5%-WATER - 50 ML IVPB SCH (09:11)
[2021-05-16] MEDS: SERTRALINE HCL 50 MG TABLET (FP) PO SCH (09:11)
[2021-05-16] MEDS: ENOXAPARIN NA (PORCINE) 40 MG/0.4 ML DISP.SYRIN SQ SCH (09:12)
[2021-05-16] MEDS: MULTIVITAMINS (DAILY MVI) TABLET (FP) PO SCH (09:12)
[2021-05-16] MEDS: ASPIRIN COATED 81 MG TABLET.EC PO SCH (09:12)
[2021-05-16] MEDS: CYANOCOBALAMIN 1,000 MCG TABLET (FP) PO SCH (09:13)
[2021-05-16 10:09] LABS: HEMATOCRIT 34.3 % (35.4-49); HEMOGLOBIN 11.5 GM/dL (11.7-16.9); MCH 31.7 pg (25.7-33.7); MCHC 33.5 g/dl (32.0-35.9); MEAN CELL VOLUME 94.7 fl (80-96); PLATELET COUNT 325 10^3/uL (134-434); RBC 3.62 M/mm3 (4.00-5.60); RDW 13.9 % (11.9-15.9)
[2021-05-16 10:49] LABS: CALCIUM 8.9 mg/dL (8.5-10.1)
[2021-05-16 10:50] LABS: BLOOD UREA NITROGEN 18.9 mg/dL (7-18); MAGNESIUM 2.3 mg/dL (1.8-2.4)
[2021-05-16 10:53] LABS: CREATININE 0.5 mg/dL (0.55-1.3); PHOSPHOROUS 3.8 mg/dL (2.5-4.9)
[2021-05-16 10:54] LABS: BILIRUBIN,TOTAL 0.4 mg/dL (0.2-1); TOT PROT 6.2 g/dl (6.4-8.2)
[2021-05-16 12:59] LABS: ANISOCYTOSIS 2+; MACROCYTOSIS 0; PLATELET ESTIMATE NORMAL
[2021-05-16] MEDS ORDERED: ACETAMINOPHEN 1000 MG/100 ML VIAL IVPB ONE (13:18)
[2021-05-16] MEDS ORDERED: SENNOSIDES/DOCUSATE COMBO (SENNA PLUS) TABLET (UD) PO ONE (20:00)
[2021-05-16] MEDS: cloZAPine 100 MG TABLET PO SCH (21:10)
[2021-05-16] MEDS: SENNOSIDES 8.8 MG/5 ML BULK BOTTLE PO SCH (21:10)
[2021-05-17] MEDS ORDERED: PT OWN MED DRAWER 7, Y5N ONE ×3 (05:35→20:55)
[2021-05-17] MEDS: cloZAPine 25 MG TABLET PO SCH ×2 (06:29→09:43)
[2021-05-17] MEDS: ALBUTEROL SO4 2.5/IPRATROPIUM 0.5 INH SOL 3 ML VIAL.NEB. NEB SCH ×4 (07:46→21:10)
[2021-05-17] MEDS ORDERED: DEXTROSE 5%-WATER - 50 ML IVPB ONE (09:37)
[2021-05-17] MEDS ORDERED: cefTRIAXone SODIUM 1 GM VIAL ONE (09:37)
[2021-05-17] MEDS: ASPIRIN COATED 81 MG TABLET.EC PO SCH (09:42)
[2021-05-17] MEDS: SERTRALINE HCL 50 MG TABLET (FP) PO SCH (09:42)
[2021-05-17] MEDS: ENOXAPARIN NA (PORCINE) 40 MG/0.4 ML DISP.SYRIN SQ SCH (09:42)
[2021-05-17] MEDS: CYANOCOBALAMIN 1,000 MCG TABLET (FP) PO SCH (09:42)
[2021-05-17] MEDS: MULTIVITAMINS (DAILY MVI) TABLET (FP) PO SCH (09:42)
[2021-05-17] MEDS: POLYETHYLENE GLYCOL (HEALTHYLAX) 3350 17 GM PACKET PO SCH (09:43)
[2021-05-17] MEDS: CEFTRIAXONE 1 GM in DEXTROSE 5%-WATER - 50 ML IVPB SCH (09:43)
[2021-05-17 10:25] LABS: HEMATOCRIT 34.9 % (35.4-49); HEMOGLOBIN 11.7 GM/dL (11.7-16.9); MCH 31.8 pg (25.7-33.7); MCHC 33.4 g/dl (32.0-35.9); MEAN CELL VOLUME 95.1 fl (80-96); MEAN PLT VOLUME 10.4 fl (7.5-11.1); PLATELET COUNT 337 10^3/uL (134-434); RBC 3.68 M/mm3 (4.00-5.60); RDW 13.8 % (11.9-15.9); WHITE BLOOD COUNT 13.2 K/mm3 (4.0-10.0)
[2021-05-17 11:21] LABS: ALBUMIN 1.8 g/dl (3.4-5.0); CALCIUM 8.7 mg/dL (8.5-10.1)
[2021-05-17 11:22] LABS: BLOOD UREA NITROGEN 19.2 mg/dL (7-18); MAGNESIUM 2.2 mg/dL (1.8-2.4)
[2021-05-17 11:24] LABS: PHOSPHOROUS 3.9 mg/dL (2.5-4.9)
[2021-05-17 11:25] LABS: CREATININE 0.6 mg/dL (0.55-1.3)
[2021-05-17 11:26] LABS: TOT PROT 5.9 g/dl (6.4-8.2)
[2021-05-17 11:28] LABS: BILIRUBIN,TOTAL 0.4 mg/dL (0.2-1)
[2021-05-17 20:34] VITALS: BMI 22.6
[2021-05-17] MEDS: cloZAPine 100 MG TABLET PO SCH (21:09)
[2021-05-17] MEDS: SENNOSIDES 8.8 MG/5 ML BULK BOTTLE PO SCH (21:10)
[2021-05-18] MEDS: cloZAPine 25 MG TABLET PO SCH ×2 (06:07→09:20)
[2021-05-18] MEDS ORDERED: ALBUTEROL SO4 2.5/IPRATROPIUM 0.5 INH SOL 3 ML VIAL.NEB. NEB PRN (07:07)
[2021-05-18] MEDS ORDERED: PT OWN MED DRAWER 7, Y5N ONE ×3 (09:12→21:00)
[2021-05-18] MEDS ORDERED: cefTRIAXone SODIUM 1 GM VIAL ONE (09:13)
[2021-05-18] MEDS ORDERED: DEXTROSE 5%-WATER - 50 ML IVPB ONE (09:13)
[2021-05-18] MEDS: CEFTRIAXONE 1 GM in DEXTROSE 5%-WATER - 50 ML IVPB SCH ×2 (09:19→12:41)
[2021-05-18] MEDS: MULTIVITAMINS (DAILY MVI) TABLET (FP) PO SCH (09:20)
[2021-05-18] MEDS: ASPIRIN COATED 81 MG TABLET.EC PO SCH (09:20)
[2021-05-18] MEDS: SERTRALINE HCL 50 MG TABLET (FP) PO SCH (09:20)
[2021-05-18] MEDS: POLYETHYLENE GLYCOL (HEALTHYLAX) 3350 17 GM PACKET PO SCH (09:20)
[2021-05-18] MEDS: ENOXAPARIN NA (PORCINE) 40 MG/0.4 ML DISP.SYRIN SQ SCH (09:20)
[2021-05-18] MEDS: CYANOCOBALAMIN 1,000 MCG TABLET (FP) PO SCH (09:20)
[2021-05-18 09:46] LABS: HEMATOCRIT 35.2 % (35.4-49); HEMOGLOBIN 11.8 GM/dL (11.7-16.9); MCH 31.8 pg (25.7-33.7); MCHC 33.4 g/dl (32.0-35.9); MEAN CELL VOLUME 95.2 fl (80-96); MEAN PLT VOLUME 10.6 fl (7.5-11.1); PLATELET COUNT 339 10^3/uL (134-434); RDW 13.8 % (11.9-15.9); WHITE BLOOD COUNT 12.3 K/mm3 (4.0-10.0)
[2021-05-18 10:06] LABS: BLOOD UREA NITROGEN 17.7 mg/dL (7-18); CALCIUM 8.8 mg/dL (8.5-10.1); MAGNESIUM 2.2 mg/dL (1.8-2.4)
[2021-05-18 10:09] LABS: CREATININE 0.5 mg/dL (0.55-1.3); PHOSPHOROUS 4.2 mg/dL (2.5-4.9)
[2021-05-18 10:11] LABS: BILIRUBIN,TOTAL 0.3 mg/dL (0.2-1); TOT PROT 6.2 g/dl (6.4-8.2)
[2021-05-18] MEDS: AMOX TR/POT CLAV 875MG/125MG TABLETS (FP) PO SCH (17:22)
[2021-05-18] MEDS: cloZAPine 100 MG TABLET PO SCH (21:31)
[2021-05-18] MEDS: SENNOSIDES 8.8 MG/5 ML BULK BOTTLE PO SCH (21:32)
[2021-05-19] MEDS: cloZAPine 25 MG TABLET PO SCH ×2 (06:02→10:20)
[2021-05-19 10:15] LABS: BASO % 0.2 % (0-2.0); HEMATOCRIT 35.9 % (35.4-49); HEMOGLOBIN 12.1 GM/dL (11.7-16.9); LYMPH % 10.1 % (8-40); MCH 31.4 pg (25.7-33.7); MCHC 33.8 g/dl (32.0-35.9); MEAN PLT VOLUME 10.2 fl (7.5-11.1); MONO % 8.1 % (3.8-10.2); NEUT % 79.6 % (42.8-82.8); PLATELET COUNT 363 10^3/uL (134-434); RBC 3.86 M/mm3 (4.00-5.60); RDW 13.8 % (11.9-15.9); WHITE BLOOD COUNT 12.7 K/mm3 (4.0-10.0)
[2021-05-19] MEDS: ENOXAPARIN NA (PORCINE) 40 MG/0.4 ML DISP.SYRIN SQ SCH (10:17)
[2021-05-19] MEDS: ASPIRIN COATED 81 MG TABLET.EC PO SCH (10:17)
[2021-05-19] MEDS: SERTRALINE HCL 50 MG TABLET (FP) PO SCH (10:17)
[2021-05-19] MEDS: AMOX TR/POT CLAV 875MG/125MG TABLETS (FP) PO SCH ×2 (10:17→17:06)
[2021-05-19] MEDS: MULTIVITAMINS (DAILY MVI) TABLET (FP) PO SCH (10:17)
[2021-05-19] MEDS: POLYETHYLENE GLYCOL (HEALTHYLAX) 3350 17 GM PACKET PO SCH (10:17)
[2021-05-19] MEDS: CYANOCOBALAMIN 1,000 MCG TABLET (FP) PO SCH (10:20)
[2021-05-19 10:38] LABS: BLOOD UREA NITROGEN 20.8 mg/dL (7-18); CALCIUM 9.2 mg/dL (8.5-10.1); MAGNESIUM 2.3 mg/dL (1.8-2.4)
[2021-05-19 10:41] LABS: CREATININE 0.6 mg/dL (0.55-1.3)
[2021-05-19 10:42] LABS: TOT PROT 6.7 g/dl (6.4-8.2)
[2021-05-19 10:43] LABS: BILIRUBIN,TOTAL 0.3 mg/dL (0.2-1)
[2021-05-19 11:14] LABS: ANISOCYTOSIS 0; HELMET CELLS 0; HOWELL-JOLLY BODIES 0; MACROCYTOSIS 0; OVALOCYTE 0; PLATELET ESTIMATE NORMAL; ROULEAU 0; SICKELED CELLS 0; TARGET CELLS 0; TEAR DROP CELLS 0; TOXIC GRANULATION 0
[2021-05-19] MEDS: SENNOSIDES 8.8 MG/5 ML BULK BOTTLE PO SCH (21:49)
[2021-05-19] MEDS: cloZAPine 100 MG TABLET PO SCH (21:53)
[2021-05-20] MEDS: cloZAPine 25 MG TABLET PO SCH ×2 (05:59→09:58)
[2021-05-20] MEDS: AMOX TR/POT CLAV 875MG/125MG TABLETS (FP) PO SCH ×2 (08:47→17:56)
[2021-05-20] MEDS ORDERED: PT OWN MED DRAWER 7, Y5N ONE ×2 (09:49→17:52)
[2021-05-20] MEDS: POLYETHYLENE GLYCOL (HEALTHYLAX) 3350 17 GM PACKET PO SCH (09:57)
[2021-05-20] MEDS: SERTRALINE HCL 50 MG TABLET (FP) PO SCH (09:57)
[2021-05-20] MEDS: ENOXAPARIN NA (PORCINE) 40 MG/0.4 ML DISP.SYRIN SQ SCH (09:58)
[2021-05-20] MEDS: ASPIRIN COATED 81 MG TABLET.EC PO SCH (09:58)
[2021-05-20] MEDS: MULTIVITAMINS (DAILY MVI) TABLET (FP) PO SCH (09:58)
[2021-05-20] MEDS: CYANOCOBALAMIN 1,000 MCG TABLET (FP) PO SCH (09:58)
[2021-05-20 11:05] LABS: HEMATOCRIT 36.2 % (35.4-49); HEMOGLOBIN 12.2 GM/dL (11.7-16.9); MCH 31.6 pg (25.7-33.7); MCHC 33.8 g/dl (32.0-35.9); MEAN CELL VOLUME 93.5 fl (80-96); MEAN PLT VOLUME 9.9 fl (7.5-11.1); PLATELET COUNT 380 10^3/uL (134-434); RBC 3.88 M/mm3 (4.00-5.60); RDW 13.6 % (11.9-15.9); WHITE BLOOD COUNT 11.5 K/mm3 (4.0-10.0)
[2021-05-20 11:31] LABS: ALBUMIN 2.1 g/dl (3.4-5.0); BLOOD UREA NITROGEN 22.1 mg/dL (7-18); CALCIUM 9.2 mg/dL (8.5-10.1)
[2021-05-20 11:32] LABS: MAGNESIUM 2.2 mg/dL (1.8-2.4)
[2021-05-20 11:34] LABS: CREATININE 0.7 mg/dL (0.55-1.3); PHOSPHOROUS 4.1 mg/dL (2.5-4.9)
[2021-05-20 11:35] LABS: TOT PROT 6.8 g/dl (6.4-8.2)
[2021-05-20 11:36] LABS: BILIRUBIN,TOTAL 0.3 mg/dL (0.2-1)
[2021-05-20 14:45] VITALS: BP 113/73; PULSE 90; TEMP 97.5
== END 2021-05-20 17:57 | disposition home or self-care (01) | DRG 871 ==
LOC: JER 01:29 → JERBED 02:33 → J6S 05-12 13:40
PROVIDERS: ATTEND Internal Medicine
DX: A40.9 Streptococcal sepsis, unspecified (principal); J15.4 Pneumonia due to other streptococci; G93.41 Metabolic encephalopathy; N17.9 Acute kidney failure, unspecified; F25.9 Schizoaffective disorder, unspecified; F79 Unspecified intellectual disabilities; R74.01 Elevation of levels of liver transaminase levels; I10 Essential (primary) hypertension; D72.829 Elevated white blood cell count, unspecified; E78.5 Hyperlipidemia, unspecified; I95.9 Hypotension, unspecified
CPT/HCPCS: 36415; 70450-TC; 71045-TC-FY; 71250-TC; 76705-TC; 80048; 80053; 81003; 82010; 82803; 83605; 83735; 84100; 84484; 85025; 85027; 85610; 85730; 86738; 87040; 87086; 87186; 87804; 87807; 87899; 93005; 93010; 93306-TC; 94010; 94640; 94761; 97116-GP; 97162-GP; 99285-25; C9803; J0131; U0003; U0005